=== PATIENT | female | born 1935 | race Caucasian/White ===

== ENCOUNTER 2018-02-28 13:50 | Observation (INO) | payer MEDICARE ==
[2018-02-28] MEDS ORDERED: SODIUM CHLORIDE 0.9% 500 ML IV STA (14:05)
[2018-02-28] MEDS ORDERED: hydrALAZINE HCL 20 MG/ML 1 ML VIAL IVP STA ×2 (14:05→16:00)
[2018-02-28] MEDS ORDERED: LORazepam 2 MG/ML INJ IV STA (14:09)
--- NOTE | 2018-02-28 14:09 | ED ---
General Adult HPI - General Chief complaint: Neuro Symptoms/Deficit Stated complaint: TIA Time Seen by Provider: 02/28/18 13:50 Source: patient, EMS, RN notes reviewed Mode of arrival: EMS Limitations: no limitations - History of Present Illness Initial comments: This is a 82-year-old female who states she has a high blood pressure history but does not take any meds she does not take medication. Patient comes in today stating that she had a 20 minute episode where she was having expressive aphasia. Patient states is completely resolved at this time. Patient denies any headache patient denies any blurred vision. Patient denies any double vision. Patient denies any numbness or weakness of any extremities. Patient states currently she feels back to her baseline. Patient denies any chest pain palpitations difficulty breathing shortness of breath per patient denies any recent fever chills or cough. Patient denies abdominal pain patient denies nausea vomiting diarrhea. Patient denies any dysuria hematuria urinary frequency. - Related Data Home Medications Medication Instructions Recorded Confirmed Optim-Eyes 1 tab PO BID 02/28/18 02/28/18 Allergies Allergy/AdvReac Type Severity Reaction Status Date / Time adhesive Allergy Rash/Hives Verified 02/28/18 14:44 Review of Systems ROS Statement: Those systems with pertinent positive or pertinent negative responses have been documented in the HPI. ROS Other: All systems not noted in ROS Statement are negative. Past Medical History Past Medical History: Eye Disorder, Hypertension, Osteoarthritis (OA) Additional Past Medical History / Comment(s): Macular Degeneration, History of Any Multi-Drug Resistant Organisms: None Reported Past Surgical History: Hysterectomy, Joint Replacement, Tonsillectomy Additional Past Surgical History / Comment(s): R hip replacement, R knee replacement, rt cataract Past Anesthesia/Blood Transfusion Reactions: No Reported Reaction Past Psychological History: No Psychological Hx Reported Smoking Status: Never smoker Past Alcohol Use History: Occasional Past Drug Use History: None Reported - Past Family History Mother Family Medical History: Cancer Additional Family Medical History / Comment(s): Breast General Exam - General Exam Comments Initial Comments: GENERAL: Patient is well-developed and well-nourished. Patient is nontoxic and well- hydrated and is in mild distress. ENT: Neck is soft and supple. No significant lymphadenopathy is noted. Oropharynx is clear. Moist mucous membranes. Neck has full range of motion without eliciting any pain. EYES: The sclera were anicteric and conjunctiva were pink and moist. Extraocular movements were intact and pupils were equal round and reactive to light. Eyelids were unremarkable. PULMONARY: Unlabored respirations. Good breath sounds bilaterally. No audible rales rhonchi or wheezing was noted. CARDIOVASCULAR: There is a regular rate and rhythm without any murmurs gallops or rubs. ABDOMEN: Soft and nontender with normal bowel sounds. No palpable organomegaly was noted. There is no palpable pulsatile mass. SKIN: Skin is clear with no lesions or rashes and otherwise unremarkable. NEUROLOGIC: Patient is alert and oriented x3. Cranial nerves II through XII are grossly intact. Motor and sensory are also intact. Normal speech, volume and content. Symmetrical smile. MUSCULOSKELETAL: Normal extremities with adequate strength and full range of motion. No lower extremity swelling or edema. No calf tenderness. LYMPHATICS: No significant lymphadenopathy is noted PSYCHIATRIC: Normal psychiatric evaluation. Normal interpersonal interactions appears functionally intact in deals appropriately with others. No signs of depression. No signs of anxiety. Limitations: no limitations Course Vital Signs 02/28/18 02/28/18 02/28/18 13:52 14:19 15:05 Temperature 98 F Pulse Rate 97 76 74 Respiratory 18 18 18 Rate Blood Pressure 208/98 175/97 196/97 O2 Sat by Pulse 97 100 100 Oximetry Medical Decision Making - Medical Decision Making EKG shows sinus tachycardia with occasional PACs and occasional PVC. A rate of 106 bpm ID interval 192 QRS is 88 QT interval 342 QTC is 454. Patient's EKG shows no ST segment elevation or depression or T wave abnormalities are noted CT of the brain shows no acute normalities. Chest x-ray shows a possible widened aorta. 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 I went back in to see the patient she was asymptomatic at this time. - Lab Data Result diagrams: 02/28/18 14:10 02/28/18 14:10 Lab Results 02/28/18 02/28/18 02/28/18 Range/Units 13:56 14:10 14:10 WBC 6.7 (3.8-10.6) k/uL RBC 4.36 (3.80-5.40) m/uL Hgb 13.1 (11.4-16.0) gm/dL Hct 38.0 (34.0-46.0) % MCV 87.2 (80.0-100.0) fL MCH 30.1 (25.0-35.0) pg MCHC 34.5 (31.0-37.0) g/dL RDW 13.7 (11.5-15.5) % Plt Count 206 (150-450) k/uL Neutrophils % 68 % Lymphocytes % 22 % Monocytes % 5 % Eosinophils % 5 % Basophils % 0 % Neutrophils # 4.6 (1.3-7.7) k/uL Lymphocytes # 1.5 (1.0-4.8) k/uL Monocytes # 0.3 (0-1.0) k/uL Eosinophils # 0.3 (0-0.7) k/uL Basophils # 0.0 (0-0.2) k/uL PT (9.0-12.0) sec INR (<1.2) APTT (22.0-30.0) sec Sodium (137-145) mmol/L Potassium (3.5-5.1) mmol/L Chloride (98-107) mmol/L Carbon Dioxide (22-30) mmol/L Anion Gap mmol/L BUN (7-17) mg/dL Creatinine (0.52-1.04) mg/dL Est GFR (CKD-EPI)AfAm (>60 ml/min/1.73 sqM) Est GFR (CKD-EPI)NonAf (>60 ml/min/1.73 sqM) Glucose (74-99) mg/dL POC Glucose (mg/dL) 158 H (75-99) mg/dL POC Glu Technical Solutions Director ID Kunal Albarran Calcium (8.4-10.2) mg/dL Total Bilirubin (0.2-1.3) mg/dL AST (14-36) U/L ALT (9-52) U/L Alkaline Phosphatase (38-126) U/L Total Creatine Kinase 96 (30-135) U/L CK-MB (CK-2) 1.7 (0.0-2.4) ng/mL CK-MB (CK-2) Rel Index 1.8 Troponin I <0.012 (0.000-0.034) ng/mL Total Protein (6.3-8.2) g/dL Albumin (3.5-5.0) g/dL 02/28/18 02/28/18 Range/Units 14:10 14:10 WBC (3.8-10.6) k/uL RBC (3.80-5.40) m/uL Hgb (11.4-16.0) gm/dL Hct (34.0-46.0) % MCV (80.0-100.0) fL MCH (25.0-35.0) pg MCHC (31.0-37.0) g/dL RDW (11.5-15.5) % Plt Count (150-450) k/uL Neutrophils % % Lymphocytes % % Monocytes % % Eosinophils % % Basophils % % Neutrophils # (1.3-7.7) k/uL Lymphocytes # (1.0-4.8) k/uL Monocytes # (0-1.0) k/uL Eosinophils # (0-0.7) k/uL Basophils # (0-0.2) k/uL PT 10.2 (9.0-12.0) sec INR 1.0 (<1.2) APTT 21.4 L (22.0-30.0) sec Sodium 143 (137-145) mmol/L Potassium 4.1 (3.5-5.1) mmol/L Chloride 105 (98-107) mmol/L Carbon Dioxide 25 (22-30) mmol/L Anion Gap 13 mmol/L BUN 22 H (7-17) mg/dL Creatinine 0.80 (0.52-1.04) mg/dL Est GFR (CKD-EPI)AfAm 81 (>60 ml/min/1.73 sqM) Est GFR (CKD-EPI)NonAf 70 (>60 ml/min/1.73 sqM) Glucose 133 H (74-99) mg/dL POC Glucose (mg/dL) (75-99) mg/dL POC Glu Technical Solutions Director ID Calcium 9.8 (8.4-10.2) mg/dL Total Bilirubin 0.9 (0.2-1.3) mg/dL AST 22 (14-36) U/L ALT 22 (9-52) U/L Alkaline Phosphatase 84 (38-126) U/L Total Creatine Kinase (30-135) U/L CK-MB (CK-2) (0.0-2.4) ng/mL CK-MB (CK-2) Rel Index Troponin I (0.000-0.034) ng/mL Total Protein 6.5 (6.3-8.2) g/dL Albumin 3.8 (3.5-5.0) g/dL Disposition Clinical Impression: Transient cerebral ischemia Disposition: ADMITTED IP TO THIS HOSP Referrals: None,Stated [Primary Care Provider] - 1-2 days Time of Disposition: 16:01
[2018-02-28 14:12] LABS: Glucose,Whole Blood 158 mg/dL (75-99)
[2018-02-28 14:21] LABS: Basophils % (A) 0 %; Eosinophils # (A) 0.3 k/uL (0-0.7); Eosinophils % (A) 5 %; HGB 13.1 gm/dL (11.4-16.0); Lymphocytes # (A) 1.5 k/uL (1.0-4.8); Lymphocytes % (A) 22 %; MCH 30.1 pg (25.0-35.0); MCHC 34.5 g/dL (31.0-37.0); MCV 87.2 fL (80.0-100.0); Mean Platelet Volume 7.5; Monocytes # (A) 0.3 k/uL (0-1.0); Monocytes % (A) 5 %; Neutrophils # (A) 4.6 k/uL (1.3-7.7); Neutrophils % (A) 68 %; Platelet Count 206 k/uL (150-450); RBC 4.36 m/uL (3.80-5.40); RDW 13.7 % (11.5-15.5); WBC 6.7 k/uL (3.8-10.6)
[2018-02-28 14:38] LABS: Prothrombin Time 10.2 sec (9.0-12.0)
[2018-02-28 14:41] LABS: Albumin 3.8 g/dL (3.5-5.0); Calcium 9.8 mg/dL (8.4-10.2); Potassium 4.1 mmol/L (3.5-5.1); Total Bilirubin 0.9 mg/dL (0.2-1.3); Total Protein 6.5 g/dL (6.3-8.2)
--- NOTE | 2018-02-28 14:42 | CT ---
EXAMINATION TYPE: CT brain wo con for TPA DATE OF EXAM: 02/28/2018 HISTORY: Patient complains of episode of aphasia. CT DLP: 1064 mGycm. Automated Exposure Control for Dose Reduction was Utilized. TECHNIQUE: CT scan of the head is performed without contrast. COMPARISON: CT brain February 09, 2016 FINDINGS: There is no acute intracranial hemorrhage or midline shift identified. There is diffuse v entricular and sulcal prominence consistent with diffuse age-related cerebral atrophy. There is low- attenuation in the periventricular white matter consistent with chronic small vessel ischemic change. Hyperostosis frontalis is redemonstrated. Dependent density bilateral sphenoid sinuses is more promi nent from prior study, suspect air-fluid levels on background of eccentric mucosal thickening. Visual ized paranasal sinuses otherwise are clear. Neither lens is well-visualized in the globes. IMPRESSION: No acute intracranial hemorrhage or midline shift. There is mild diffuse age-related ce rebral atrophy and mild to moderate chronic small vessel ischemic change redemonstrated. There is no significant change from prior CT. If clinical concern for acute stroke persists further investigation with MRI study may be warranted.
[2018-02-28 14:44] LABS: Partial Thromboplastin Time 21.4 sec (22.0-30.0)
--- NOTE | 2018-02-28 14:44 | XR ---
EXAMINATION TYPE: XR chest 2V DATE OF EXAM: 02/28/2018 COMPARISON: NONE HISTORY: Altered mental status. TECHNIQUE: Frontal and lateral views of the chest are obtained. FINDINGS: There is chronic parenchymal change without suspicious focal air space opacity, pleural ef fusion, or pneumothorax seen. The cardiac silhouette size is mildly enlarged with atherosclerotic ao rta. There is suspicious rounded soft tissue superior to aortic knob with mass effect on trachea. The osseous structures are demineralized. Mild to moderate multilevel spurring in the spine with disc sp patrick narrowing is seen. IMPRESSION: Cardiomegaly and chronic parenchymal changes without acute pulmonary process. Abnormalit y left periaortic level could reflect focal aneurysm, mediastinal mass or neoplasm however needs to B E excluded. Further investigation with CT exam is advised.
[2018-02-28 14:51] LABS: Creatine Kinase 96 U/L (30-135)
[2018-02-28 15:02] LABS: Creatine Kinase MB 1.7 ng/mL (0.0-2.4); Troponin I <0.012 ng/mL (0.000-0.034)
[2018-02-28] MEDS ORDERED: RX INFO: IV CONTRAST WAS GIVEN 1 EACH MISC MISCELLANE PRN (15:16)
--- NOTE | 2018-02-28 15:53 | CT ---
EXAMINATION TYPE: CT chest w con DATE OF EXAM: 02/28/2018 COMPARISON: Same day chest x-ray HISTORY: Pain, abnormal chest x-ray CT DLP: 211.8 mGycm Automated exposure control for dose reduction was used. CONTRAST: CT scan of the chest is performed with IV Contrast, patient injected with 100 mL of Isovue 300. FINDINGS: LUNGS: There is chronic parenchymal change with bibasilar scarring and/or atelectasis throughout the lower lobes. There is mild to moderate biapical pleural/parenchymal scarring. No suspicious parenchym al nodule or mass is present. No pleural effusion or pneumothorax is seen. Tracheobronchial tree is p atent. MEDIASTINUM: There are no greater than 1 cm hilar or mediastinal lymph nodes. No pericardial effus ion is seen. Cardiomegaly is present. There is enlarged main pulmonary artery. Corresponding to x-ra y abnormality past three-vessel takeoff there is eccentric thrombosed aneurysm of the proximal descen ding thoracic aorta measuring approximately 4.6 x 3.7 cm axial image 11. There is moderate mixed plaq ue in descending thoracic aorta. OTHER: There is nonobstructing 4 mm calculus mid pole level right kidney coronal image 49. There are few simple appearing cysts scattered throughout the visualized right kidney. There is nonobstructed 6 mm calculus mid pole level left kidney axial image 68. Osseous structures are demineralized. Slight S-shaped scoliosis is seen. There is moderate multilevel spurring present. IMPRESSION: 1. Corresponding to chest x-ray abnormality there is eccentric thrombosed aneurysm of the proximal de scending thoracic aorta. Nonemergent cardiovascular referral or follow-up advised. 2. Chronic parenchymal changes without suspicious acute pulmonary process.
[2018-02-28] MEDS ORDERED: ASPIRIN 325 MG TAB PO STA (16:03)
[2018-02-28] MEDS ORDERED: CLOBETASOL PROP 0.05% CR 15GM TOPICAL PRN (18:53)
[2018-03-01] MEDS: LABETALOL 200 MG TAB PO SCH ×3 (00:25→21:21)
[2018-03-01] MEDS: HEPARIN SODIUM,PORCINE 5,000 UNIT/ML 1 ML VIAL SQ SCH ×4 (00:29→23:57)
--- NOTE | 2018-03-01 01:17 | P.HPIM ---
History of Present Illness H&P Date: 02/28/18 Chief Complaint: Expressive aphagia Patient is a 82-year-old female with known history of hypertension, osteoarthritis and macular degeneration came to ER with complaints of difficulty finding words which last for about 20 minutes. Patient was having expressive aphasia which has completely resolved at this time. Otherwise patient denied any recent illnesses or sick contacts. Denied any focal weakness or blurry vision. No numbness or tingling. Currently she is back to her baseline. Otherwise denied any chest pain or shortness of breath. No history of irregular heartbeat or palpitations. No cough or sputum production. No nausea vomiting or abdominal pain. No dysuria or hematuria . CT head showed no acute process. Mild diffuse age-related cerebral atrophy and mild to moderate small was a ischemic changes. No significant change from her CT Chest x-ray showed cardiomegaly and chronic parenchymal changes without acute process. Abnormal left periaortic level could reflect focal aneurysm CT chest showed eccentric thrombosis aneurysm of the proximal thoracic descending aorta EKG showed sinus tachycardia and PACs Review of Systems Constitutional: Patient denies any fever or chills . No generalized weakness or weight loss. Abdomen: Patient denied nausea vomiting and diarrhea and abdominal pain. Cardiovascular: Patient denies any chest pain or short of breath no palpitations. Respiratory: patient denied any cough is from production. No shortness of breath Neurologic: Patient denied any numbness or tingling headache. Musculoskeletal: Patient denies any complaints of joint swelling or deformity. Skin: Negative Psychiatric: Negative Endocrine: No heat or cold intolerance. No recent weight gain. Genitourinary: No dysuria or hematuria. All other 14 point ROS negative except the above Past Medical History Past Medical History: Eye Disorder, Hypertension, Osteoarthritis (OA) Additional Past Medical History / Comment(s): Macular Degeneration, past bladder infection, "vaginal itching uses a cream for it" History of Any Multi-Drug Resistant Organisms: None Reported Past Surgical History: Hysterectomy, Joint Replacement, Tonsillectomy Additional Past Surgical History / Comment(s): R hip replacement, R knee replacement, monika cataract, vein stripping Past Anesthesia/Blood Transfusion Reactions: No Reported Reaction Smoking Status: Never smoker - Past Family History Mother Family Medical History: Cancer Additional Family Medical History / Comment(s): Breast Medications and Allergies Home Medications Medication Instructions Recorded Confirmed Type Clobetasol Propionate [Temovate 1 applic TOPICAL DIRECTED PRN 02/28/18 History 0.05% Cream] Optim-Eyes 1 tab PO BID 02/28/18 02/28/18 History Allergies Allergy/AdvReac Type Severity Reaction Status Date / Time adhesive Allergy Rash/Hives Verified 02/28/18 14:44 Physical Exam Vitals: Vital Signs Temp Pulse Resp BP Pulse Ox 02/28/18 16:45 97.5 F L 100 18 176/77 100 02/28/18 16:06 81 18 194/84 96 02/28/18 15:05 74 18 196/97 100 02/28/18 14:19 76 18 175/97 100 02/28/18 13:52 98 F 97 18 208/98 97 Intake and Output 02/28/18 02/28/18 02/28/18 06:59 14:59 22:59 Other: Weight 63.503 kg PHYSICAL EXAMINATION: Patient is lying in the bed comfortably, no acute distress, awake alert and oriented.. HEENT: Normocephalic. Neck is supple. Pupils reactive. Nostrils clear. Oral cavity is moist. Ears reveal no drainage. Neck reveals no JVD, carotid bruits, or thyromegaly. CHEST EXAMINATION: Trachea is central. Symmetrical expansion. Lung arzate clear to auscultation and percussion. CARDIAC: Normal S1, S2 with no gallops. No murmurs ABDOMEN: Soft. Bowel sounds normal. No organomegaly. No abdominal bruits. Extremities: reveal no edema. No clubbing or cyanosis Neurologically awake, alert, oriented x3 with well-coordinated movements. No focal deficits noted Skin: No rash or skin lesions. Psychiatric: Cooperative. Nonsuicidal Musculoskeletal: No joint swelling or deformity. Normal range of motion. Results CBC & Chem 7: 02/28/18 14:10 02/28/18 14:10 Labs: Abnormal Lab Results - Last 24 Hours (Table) 02/28/18 02/28/18 02/28/18 Range/Units 13:56 14:10 14:10 APTT 21.4 L (22.0-30.0) sec BUN 22 H (7-17) mg/dL Glucose 133 H (74-99) mg/dL POC Glucose (mg/dL) 158 H (75-99) mg/dL Thrombosis Risk Factor Assmnt - DVT/VTE Prophylaxis DVT/VTE Prophylaxis: Pharmacologic Prophylaxis ordered Assessment and Plan Assessment: Expressive aphasia likely due to TIA. 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 Started on labetalol 200 mg twice a day and Norvasc will be added. Continue to monitor blood pressure and titrate medications as needed. Neurology was consulted. Further recommendations based on the clinical course. Continue with home medications. Will check lipid panel.. Time with Patient: Greater than 30
[2018-03-01 05:16] LABS: Cholesterol 249 mg/dL (<200); HDL Cholesterol 57 mg/dL (40-60); LDL Cholesterol,Calculated 169 mg/dL (0-99); Triglycerides 117 mg/dL (<150)
[2018-03-01] MEDS: VIT A,C & E-LUTEIN-MINERALS 1 EACH TAB PO SCH (09:32)
[2018-03-01] MEDS: ASPIRIN 325 MG TAB PO SCH (09:32)
[2018-03-01] MEDS: amLODIPine 5 MG TAB PO SCH (12:17)
--- NOTE | 2018-03-01 16:09 | US ---
EXAMINATION TYPE: US carotid duplex BILAT DATE OF EXAM: 03/01/2018 COMPARISON: NONE CLINICAL HISTORY: 82-year-old female TIA. TECHNIQUE: Carotid duplex ultrasound examination. In direct upper criteria was utilized. FINDINGS: EXAM MEASUREMENTS: RIGHT: Peak Systolic Velocity (PSV) cm/sec ----- Right CCA: 104.3 (Proximal 160 cm/s) ----- Right ICA: 76.8 ----- Right ECA: 112.9 ICA/CCA ratio: 0.7 RIGHT: End Diastole cm/sec ----- Right CCA: 18.4 ----- Right ICA: 23.0 ----- Right ECA: 11.1 LEFT: Peak Systolic Velocity (PSV) cm/sec ----- Left CCA: 67.3 ----- Left ICA: 84.5 ----- Left ECA: 121.0 ICA/CCA ratio: 1.2 LEFT: End Diastole cm/sec ----- Left CCA: 13.1 ----- Left ICA: 24.1 ----- Left ECA: 4.7 VERTEBRALS (direction of flow): Right Vertebral: Antegrade Left Vertebral: Antegrade Rhythm: Normal Mild amount of plaque visualized at bilateral bulbs. Elevated velocity at the right proximal CCA. Ves jonathon is deep and slightly tortuous IMPRESSION: 1. No hemodynamically significant stenosis appreciated in either internal carotid artery. 2. Elevated velocities in the proximal right common carotid artery could represent either a moderate stenosis near its origin versus increased velocities from vessel tortuosity. Criteria for Assigning % of Stenosis / Diameter reduction (Estimation based on the indirect measurements of the internal carotid artery velocities (ICA PSV). 1. Normal (no stenosis)=ICA PSV < 125 cm/s: ratio < 2.0: ICA EDV<40 cm/s. 2. Less than 50% stenosis=ICA PSV < 125 cm/s: ratio < 2.0: ICA EDV<40 cm/s. 3. 50 to 69% stenosis=ICA PSV of 125 to 230 cm/s: ration 2.0 ? 4.0: ICA EDV 40-100 cm/s. 4. Greater than 70% stenosis to near occlusion= ICA PSV > 230 cm/s: ratio > 4.0: ICA EDV > 100 cm/s. 5. Near occlusion= ICA PSV velocities may be low or undetectable: variable ratio and ICA EDV. 6. Total occlusion=unable to detect flow.
--- NOTE | 2018-03-01 19:16 | P.CNNES ---
History of Present Illness Consult date: 03/01/18 History of Present Illness: The patient is an 82-year-old right-handed white female who lives at [facility] who states that she was going down to lunch yesterday and she found that she could not bring out the words properly. She wanted to say cottage cheese but the word could not come out. Back to her room and called her friend. Her friend and notified the staff at [facility] and EMS was called. She was brought to the hospital. The entire episode lasted for 15 minutes. There was no associated neurologic symptoms such as focal weakness numbness visual changes or headache. She states she had only the speech word finding difficulty. There is no past history of such events. Patient feels fine today. In the emergency room she had a CT brain and there was no acute hemorrhage or midline shift. There is age-related changes. Review of Systems Constitutional: Denies chills, Denies fever Eyes: denies blurred vision, denies pain Cardiovascular: Denies chest pain, Denies shortness of breath Respiratory: Denies cough Musculoskeletal: Denies myalgias Integumentary: Denies pruritus, Denies rash Neurological: Denies numbness, Denies weakness Psychiatric: Denies anxiety, Denies depression Past Medical History Past Medical History: Eye Disorder, Hypertension, Osteoarthritis (OA) Additional Past Medical History / Comment(s): Macular Degeneration, past bladder infection, "vaginal itching uses a cream for it" History of Any Multi-Drug Resistant Organisms: None Reported Past Surgical History: Hysterectomy, Joint Replacement, Tonsillectomy Additional Past Surgical History / Comment(s): R hip replacement, R knee replacement, monika cataract, vein stripping Past Anesthesia/Blood Transfusion Reactions: No Reported Reaction Smoking Status: Never smoker - Past Family History Mother Family Medical History: Cancer Additional Family Medical History / Comment(s): Breast Medications and Allergies Home Medications Medication Instructions Recorded Confirmed Type Clobetasol Propionate [Temovate 1 applic TOPICAL DIRECTED PRN 02/28/18 History 0.05% Cream] Optim-Eyes 1 tab PO BID 02/28/18 02/28/18 History Allergies Allergy/AdvReac Type Severity Reaction Status Date / Time adhesive Allergy Rash/Hives Verified 02/28/18 14:44 Physical Examination - Vital Signs Vital Signs: Vital Signs Temp Pulse Pulse Resp BP BP Pulse Ox 03/01/18 16:00 97.5 F L 64 18 121/67 96 03/01/18 12:15 97.5 F L 71 16 162/56 95 03/01/18 08:29 97.6 F 73 16 104/70 99 03/01/18 04:00 97.7 F 71 16 148/67 99 03/01/18 00:00 97.2 F L 71 16 164/88 97 02/28/18 21:00 78 18 142/72 98 Intake and Output 03/01/18 03/01/18 03/01/18 06:59 14:59 22:59 Intake Total 240 420 Balance 240 420 Intake: Oral 240 420 Other: Voiding Method Toilet Toilet Toilet Bedside Commode Bedside Commode Bedside Commode # Voids 1 1 - Constitutional General appearance: average body habitus - EENT EENT: PERRL, hearing diminished - Respiratory Respiratory: lungs clear - Cardiovascular Cardiovascular: regular rate, normal S1 - Neurologic Neurologic examination: Mental status: She was awake alert and oriented 3. Her speech was fluent. She was able to name and repeat. There was no a aphasia or dysarthria. Next Cranial nerve examination: Cranial nerves II through XII are grossly intact except for reduced vision in both eyes next and reduced hearing. Next Motor examination 5 out of 5 throughout Sensory examination: Intact to light touch Coronation: Finger to nose intact Gait: She was able to walk without ataxia - Psychiatric Psychiatric: mood/affect appropriate Results - Laboratory Findings CBC and BMP: 02/28/18 14:10 02/28/18 14:10 Abnormal Lab Findings: Abnormal Labs 02/28/18 02/28/18 02/28/18 13:56 14:10 14:10 APTT 21.4 L BUN 22 H Glucose 133 H POC Glucose (mg/dL) 158 H Cholesterol LDL Cholesterol, Calc 02/28/18 14:10 APTT BUN Glucose POC Glucose (mg/dL) Cholesterol 249 H LDL Cholesterol, Calc 169 H Assessment and Plan (1) Transient cerebral ischemia Current Visit: Yes Status: Acute SNOMED Code(s): 467232067 Plan: The patient is an 82-year-old woman who had a transient episode of word finding expressive aphasia. The patient has likely had a TIA. Recommend carotid ultrasound and echocardiogram. Recommend aspirin therapy. Her primary risk factor for stroke is hypertension.
[2018-03-01] MEDS: ATORVASTATIN 40 MG TAB PO SCH (21:28)
--- NOTE | 2018-03-01 22:07 | P.PN ---
Subjective Progress Note Date: 03/01/18 Principal diagnosis: TIA Patient is a 82-year-old female with known history of hypertension, osteoarthritis and macular degeneration came to ER with complaints of difficulty finding words which last for about 20 minutes. Patient was having expressive aphasia which has completely resolved at this time. Otherwise patient denied any recent illnesses or sick contacts. Denied any focal weakness or blurry vision. No numbness or tingling. Currently she is back to her baseline. Otherwise denied any chest pain or shortness of breath. No history of irregular heartbeat or palpitations. No cough or sputum production. No nausea vomiting or abdominal pain. No dysuria or hematuria . CT head showed no acute process. Mild diffuse age-related cerebral atrophy and mild to moderate small was a ischemic changes. No significant change from her CT Chest x-ray showed cardiomegaly and chronic parenchymal changes without acute process. Abnormal left periaortic level could reflect focal aneurysm CT chest showed eccentric thrombosis aneurysm of the proximal thoracic descending aorta EKG showed sinus tachycardia and PACs On 03/01/2018 Patient denied any complaints of difficulty in finding words today. Symptoms haven't completely resolved. Carotid duplex showed no significant stenosis. Neurology has seen the patient. CT surgery was consulted for thrombosis of the proximal thoracic descending aorta. No complaints of chest pain or shortness of breath. No fever no chills. No other acute overnight issues. All other review of systems negative except the above. Current medications reviewed. Objective - Vital Signs Vital signs: Vital Signs Temp 97.5 F L 03/01/18 16:00 Pulse 64 03/01/18 16:00 Resp 18 03/01/18 16:00 BP 121/67 03/01/18 16:00 Pulse Ox 96 03/01/18 16:00 Intake & Output 02/28/18 03/01/18 03/01/18 18:59 06:59 18:59 Intake Total 240 Balance 240 Weight 63.503 kg Intake: Oral 240 Other: Voiding Method Toilet Toilet Bedside Commode Bedside Commode # Voids 1 1 - Exam PHYSICAL EXAMINATION: Patient is lying in the bed comfortably, no acute distress, awake alert and oriented.. HEENT: Normocephalic. Neck is supple. Pupils reactive. Nostrils clear. Oral cavity is moist. Ears reveal no drainage. Neck reveals no JVD, carotid bruits, or thyromegaly. CHEST EXAMINATION: Trachea is central. Symmetrical expansion. Lung arzate clear to auscultation and percussion. CARDIAC: Normal S1, S2 with no gallops. No murmurs ABDOMEN: Soft. Bowel sounds normal. No organomegaly. No abdominal bruits. Extremities: reveal no edema. No clubbing or cyanosis Neurologically awake, alert, oriented x3 with well-coordinated movements. No focal deficits noted Skin: No rash or skin lesions. Psychiatric: Coperative. Nonsuicidal Musculoskeletal: No joint swelling or deformity. Normal range of motion. - Labs CBC & Chem 7: 02/28/18 14:10 02/28/18 14:10 Labs: Abnormal Lab Results - Last 24 Hours (Table) 02/28/18 Range/Units 14:10 Cholesterol 249 H (<200) mg/dL LDL Cholesterol, Calc 169 H (0-99) mg/dL Assessment and Plan Assessment: Expressive aphasia likely due to TIA. Resolved at this time Hypertensive urgency on admission. 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 Started on labetalol 200 mg twice a day and Norvasc was added. Blood pressure is better controlled now. Continue to monitor blood pressure and titrate medications as needed. Neurology was consulted. Further recommendations based on the clinical course. Continue with home medications. Will check lipid panel.. Time with Patient: Greater than 30
[2018-03-02 06:14] LABS: Basophils % (A) 0 %; Eosinophils # (A) 0.3 k/uL (0-0.7); Eosinophils % (A) 5 %; HCT 36.2 % (34.0-46.0); Lymphocytes # (A) 2.2 k/uL (1.0-4.8); Lymphocytes % (A) 44 %; MCH 29.7 pg (25.0-35.0); MCHC 33.3 g/dL (31.0-37.0); MCV 89.2 fL (80.0-100.0); Monocytes # (A) 0.3 k/uL (0-1.0); Monocytes % (A) 5 %; Neutrophils # (A) 2.3 k/uL (1.3-7.7); Neutrophils % (A) 45 %; Platelet Count 173 k/uL (150-450); RBC 4.06 m/uL (3.80-5.40); RDW 13.8 % (11.5-15.5); WBC 5.1 k/uL (3.8-10.6)
[2018-03-02 06:38] LABS: Anion Gap 9 mmol/L; Blood Urea Nitrogen 16 mg/dL (7-17); Calcium 9.2 mg/dL (8.4-10.2); Carbon Dioxide 25 mmol/L (22-30); Chloride 107 mmol/L (98-107); Glucose 92 mg/dL (74-99); Sodium 141 mmol/L (137-145)
[2018-03-02] MEDS: ASPIRIN 325 MG TAB PO SCH (09:09)
[2018-03-02] MEDS: HEPARIN SODIUM,PORCINE 5,000 UNIT/ML 1 ML VIAL SQ SCH ×3 (09:10→23:06)
[2018-03-02] MEDS: amLODIPine 5 MG TAB PO SCH (09:10)
[2018-03-02] MEDS: LABETALOL 100 MG TAB PO SCH ×2 (09:10→20:51)
--- NOTE | 2018-03-02 10:36 | ECHOF ---
Referral Reason:TIA MEASUREMENTS -------- HEIGHT: 172.7 cm WEIGHT: 57.6 kg BP: 130/50 IVSd: 1.1 cm (0.6 - 1.1) LVIDd: 4.6 cm (3.9 - 5.3) LVPWd: 1.0 cm (0.6 - 1.1) IVSs: 1.7 cm LVIDs: 2.7 cm LVPWs: 1.8 cm LA Diam: 4.3 cm (2.7 - 3.8) LAESV Index (A-L): 42.76 ml/m Ao Diam: 3.3 cm (2.0 - 3.7) AV Cusp: 1.5 cm (1.5 - 2.6) LA Diam: 3.7 cm (2.7 - 3.8) MV EXCURSION: 17.354 mm (> 18.000) MV EF SLOPE: 40 mm/s (70 - 150) EPSS: 0.3 cm MV E Kuldeep: 1.11 m/s MV DecT: 407 ms MV A Kuldeep: 1.33 m/s MV E/A Ratio: 0.83 MV DecT: 407 ms RAP: 5.00 mmHg RVSP: 29.90 mmHg FINDINGS -------- Sinus rhythm. This was a technically good study. The left ventricular size is normal. There is borderline concentric left ventricular hypertrophy. Overall left ventricular systolic function is low-normal with, an EF between 50 - 55 %. The right ventricle is normal in size. The left atrium is mildly dilated. LA is severely dilated >40 ml/m2 The right atrial size is normal. There is mild aortic valve sclerosis. There is no evidence of aortic regurgitation. Moderate mitral annular calcification present. Mild mitral regurgitation is present. Mild tricuspid regurgitation present. There is no evidence of pulmonary hypertension. The right v entricular systolic pressure, as measured by Doppler, is 29.90mmHg. There is no pulmonic regurgitation present. The aortic root size is normal. There is no pericardial effusion. CONCLUSIONS -------- 1. The left ventricular size is normal. 2. There is borderline concentric left ventricular hypertrophy. 3. Overall left ventricular systolic function is low-normal with, an EF between 50 - 55 %. 4. The left atrium is mildly dilated. 5. LA is severely dilated >40 ml/m2 6. There is mild aortic valve sclerosis. 7. Moderate mitral annular calcification present. 8. Mild mitral regurgitation is present. 9. Mild tricuspid regurgitation present. 10. There is no evidence of pulmonary hypertension. 11. The right ventricular systolic pressure, as measured by Doppler, is 29.90mmHg. 12. There is no pulmonic regurgitation present. 13. The aortic root size is normal. 14. There is no pericardial effusion. UPPER SHAPER: Viktoria Inman RDCS
--- NOTE | 2018-03-02 11:27 | P.GSCN ---
<Naeem Roy - Last Filed: 03/02/18 11:09> History of Present Illness Consult date: 03/02/18 Reason for Consult: Descending aortic aneurysm Requesting physician: Luke Perez History of present illness: This is a 82-year-old female with a medical history significant for hypertension , osteoarthritis, and macular degeneration. She presented to the emergency department here at [facility] with complaints of difficulty of finding her words which lasted for approximately 20-30 minutes. She lives at a local assisted care facility and reports that she was having a conversation with her friend over the phone and was having trouble completing sentences. She denies any recent trauma, fever, nausea, vomiting, loss of bowel or bladder function, pain, or shortness of breath. She does report having some blurred vision which she has had for several years. A chest x-ray was completed in the emergency department which did demonstrate an abnormality to her left periaortic level which could reflect an aneurysm, mediastinal mass or neoplasm. Subsequently a follow-up computed tomography scan of her chest was completed which showed an eccentric thrombosed aneurysm of the proximal descending thoracic aorta measuring 4.6 x 3.7 cm in axial image 11. Due to the incidental finding of this descending aortic aneurysm a consult was placed for cardiothoracic surgery for further evaluation and treatment recommendations. Review of Systems A 14 point review of systems was completed and was negative except as mentioned in the HPI. Past Medical History Past Medical History: Eye Disorder (Cataracts, blurred vision.), Hypertension, Osteoarthritis (OA) Additional Past Medical History / Comment(s): Macular Degeneration, past bladder infection, "vaginal itching uses a cream for it" History of Any Multi-Drug Resistant Organisms: None Reported Past Surgical History: Hysterectomy, Joint Replacement, Tonsillectomy Additional Past Surgical History / Comment(s): R hip replacement, R knee replacement, monika cataract, vein stripping Past Anesthesia/Blood Transfusion Reactions: No Reported Reaction Past Psychological History: No Psychological Hx Reported Smoking Status: Never smoker Past Alcohol Use History: Occasional Past Drug Use History: None Reported - Past Family History Mother Family Medical History: Cancer, Hypertension, Myocardial Infarction (NH) Additional Family Medical History / Comment(s): Breast, history of aortic aneurysm. Father Family Medical History: Diabetes Mellitus Medications and Allergies Home Medications Medication Instructions Recorded Confirmed Type Clobetasol Propionate [Temovate 1 applic TOPICAL DIRECTED PRN 02/28/18 History 0.05% Cream] Optim-Eyes 1 tab PO BID 02/28/18 02/28/18 History Aspirin 81 mg PO DAILY #30 chewable 03/02/18 Rx Atorvastatin [Lipitor] 40 mg PO HS #30 tab 03/02/18 Rx Carvedilol [Coreg] 3.125 mg PO BID #60 tablet 03/02/18 Rx amLODIPine [Norvasc] 5 mg PO DAILY #30 tab 03/02/18 Rx Levofloxacin [Levaquin] 500 mg PO DAILY 3 Days #3 tab 03/03/18 Rx Allergies Allergy/AdvReac Type Severity Reaction Status Date / Time adhesive Allergy Rash/Hives Verified 02/28/18 14:44 Surgical - Exam Vital Signs Temp Pulse Resp BP Pulse Ox 98 F 97 18 208/98 97 02/28/18 13:52 02/28/18 13:52 02/28/18 13:52 02/28/18 13:52 02/28/18 13:52 - General well developed, well nourished, no distress, no pain - Eyes PERRL, normal ocular movement - ENT normal pinna, normal nares, normal mucosa, no congestion, decreased hearing - Neck No lymphadenopathy, no thyroidomegaly, neck is supple. no masses, no bruits, trachea midline, no venous distension - Respiratory Lung sounds essentially clear throughout, diminished bilateral bases. Respirations are symmetrical and nonlabored. - Cardiovascular Regular rhythm and rate. S1 and S2 present, negative for S3, gallop or murmurs. No edema present. Knee-high ALETHEA hose in place to bilateral lower extremities. - Abdomen Abdomen is soft, nontender and nondistended. Active bowel sounds to all 4 abdominal quadrants. Tolerating oral intake. Passing flatus. No guarding or rigidity. No organomegaly. - Genitourinary Deferred - Rectum Deferred - Integumentary no rash, no growths, no abnormal pigmentation - Neurologic normal coordination, normal sensation - Musculoskeletal normal gait, normal posture - Psychiatric oriented to time, oriented to person, oriented to place, speech is normal, memory intact Results - Labs 03/02/18 06:01 03/02/18 06:01 Diabetes panel 03/02/18 Range/Units 06:01 Sodium 141 (137-145) mmol/L Potassium 4.0 (3.5-5.1) mmol/L Chloride 107 (98-107) mmol/L Carbon Dioxide 25 (22-30) mmol/L BUN 16 (7-17) mg/dL Creatinine 0.70 (0.52-1.04) mg/dL Glucose 92 (74-99) mg/dL Calcium 9.2 (8.4-10.2) mg/dL Calcium panel 03/02/18 Range/Units 06:01 Calcium 9.2 (8.4-10.2) mg/dL Pituitary panel 03/02/18 Range/Units 06:01 Sodium 141 (137-145) mmol/L Potassium 4.0 (3.5-5.1) mmol/L Chloride 107 (98-107) mmol/L Carbon Dioxide 25 (22-30) mmol/L BUN 16 (7-17) mg/dL Creatinine 0.70 (0.52-1.04) mg/dL Glucose 92 (74-99) mg/dL Calcium 9.2 (8.4-10.2) mg/dL Adrenal panel 03/02/18 Range/Units 06:01 Sodium 141 (137-145) mmol/L Potassium 4.0 (3.5-5.1) mmol/L Chloride 107 (98-107) mmol/L Carbon Dioxide 25 (22-30) mmol/L BUN 16 (7-17) mg/dL Creatinine 0.70 (0.52-1.04) mg/dL Glucose 92 (74-99) mg/dL Calcium 9.2 (8.4-10.2) mg/dL - Imaging Chest x-ray: report reviewed, image reviewed CT scan - chest: report reviewed, image reviewed Assessment and Plan (1) Descending thoracic aortic aneurysm Status: Acute Code(s): I71.2 - THORACIC AORTIC ANEURYSM, WITHOUT RUPTURE SNOMED Code(s): 4266925713878 (2) Transient cerebral ischemia Status: Acute Code(s): G45.9 - TRANSIENT CEREBRAL ISCHEMIC ATTACK, UNSPECIFIED SNOMED Code(s): 518724160 (3) Cataract Status: Acute Code(s): H26.9 - UNSPECIFIED CATARACT SNOMED Code(s): 837185483 (4) Hypertension Status: Acute Code(s): I10 - ESSENTIAL (PRIMARY) HYPERTENSION SNOMED Code(s) : 88691449 (5) Osteoarthritis Status: Acute Code(s): M19.90 - UNSPECIFIED OSTEOARTHRITIS, UNSPECIFIED SITE SNOMED Code(s): 926299515 Plan: The patient was seen and examined. Her chart and diagnostics were reviewed. Her case was discussed with Dr. Good. Dr. Good reviewed the CT scan of her chest results with the patient. Recommend continue her beta cristian, calcium channel cristian for blood pressure control. She will need to follow-up with a computed tomography scan of her chest in 3 months to follow her descending aortic aneurysm. No surgical treatment is recommended at this time. Thank you Dr. Perez for this consult and we will follow the patient on a as needed basis. Time with Patient: Greater than 30 <Ar Good - Last Filed: 03/05/18 10:59> Surgical - Exam Vital Signs Temp Pulse Resp BP Pulse Ox 98 F 97 18 208/98 97 02/28/18 13:52 02/28/18 13:52 02/28/18 13:52 02/28/18 13:52 02/28/18 13:52 Results - Labs 03/02/18 06:01 03/02/18 06:01 Microbiology - Last 24 Hours (Table) 03/02/18 16:00 Urine Culture - Final Urine,Clean Catch Escherichia coli Assessment and Plan Plan: The patient was seen and examined. The history and physical findings were verified. I agree with the above assessment and plan. The patient is an 82- year-old female admitted with TIA symptomatology, who had an incidental finding of a descending thoracic aortic aneurysm on computed tomography scan. Computed tomography scan reveals what may have been a limited aortic dissection which is now thrombosed just distal to the takeoff of the left subclavian artery. There is no evidence of pleural effusion or ascending aortic dissection. At this point I would continue with medical management including blood pressure control with a beta cristian. I would also recommend a follow-up computed tomography scan in 3 months time. There is no plan for surgical intervention at this time.
[2018-03-02 11:33] VITALS: RESP 16
[2018-03-02] MEDS: VIT A,C & E-LUTEIN-MINERALS 1 EACH TAB PO SCH (11:34)
[2018-03-02 16:39] LABS: Appearance,Urine Cloudy (Clear); Bacteria,Urine Moderate /hpf; Bilirubin,Urine Negative (Negative); Blood,Urine Negative (Negative); Color,Urine Light Yellow; Glucose,Urine (UA) Negative (Negative); Ketones,Urine Negative (Negative); Leukocyte Esterase,Urine Large (Negative); Nitrite,Urine Negative (Negative); PH, Urine 6.5 (5.0-8.0); Protein,Urine Negative (Negative); RBC,Urine 2 /hpf (0-5); Specific Gravity,Urine 1.005 (1.001-1.035); Squamous Epithelial Cell,Urine <1 /hpf (0-4); Urobilinogen,Urine <2.0 mg/dL (<2.0); WBC,Urine 87 /hpf (0-5)
[2018-03-02] MEDS ORDERED: cefTRIAXone IN SWFI 1,000 MG/10 ML SYRINGE IVP SCH (18:00)
--- NOTE | 2018-03-02 20:36 | P.PN ---
Subjective Progress Note Date: 03/02/18 The patient is an 82-year-old woman who was admitted to the hospital with episode of word finding difficulty. She has been asymptomatic since admission. She has been started on aspirin daily. She has had a carotid ultrasound which has not shown any stenosis. She has had an echocardiogram which was unremarkable. She had a computed tomography scan of the brain which showed age- related changes and atrophy. The patient is feeling well. He denies any speech disturbance or recurrence of speech defect. The patient likely has had a TIA. Her primary risk factor for stroke is hypertension however she states she does not like taking blood pressure pills and stopped taking them about 6 months ago. Objective - Vital Signs Vital signs: Vital Signs Temp 97.0 F L 03/02/18 16:00 Pulse 69 03/02/18 16:00 Resp 16 03/02/18 16:00 BP 138/72 03/02/18 16:00 Pulse Ox 97 03/02/18 16:00 Intake & Output 03/02/18 03/02/18 03/03/18 06:59 18:59 06:59 Intake Total 620 1640 Balance 620 1640 Weight 58 kg Intake: Oral 620 1640 Other: Voiding Method Toilet Toilet Bedside Commode Bedside Commode # Voids 1 - Constitutional General appearance: Present: average body habitus, cooperative - EENT Eyes: Present: PERRLA - Respiratory Respiratory: bilateral: CTA - Cardiovascular Rhythm: regular - Neurologic Neurologic Comment(s): Neurologic examination: Mental status: She was awake alert and oriented 3 her speech was fluent there is no a aphasia or dysarthria. Cranial nerve examination pupils were equal and reactive there was no facial asymmetry she did have visual acuity loss next Motor examination no focal weakness detected - Musculoskeletal Musculoskeletal: Present: strength equal bilaterally - Labs CBC & Chem 7: 03/02/18 06:01 03/02/18 06:01 Labs: Abnormal Lab Results - Last 24 Hours (Table) 03/02/18 Range/Units 16:00 Urine Appearance Cloudy H (Clear) Ur Leukocyte Esterase Large H (Negative) Urine WBC 87 H (0-5) /hpf Urine WBC Clumps Few H (None) /hpf Urine Bacteria Moderate H (None) /hpf Assessment and Plan (1) Transient cerebral ischemia Current Visit: Yes Status: Acute SNOMED Code(s): 443230101 Plan: The patient is an 82-year-old woman admitted to the hospital with episode of word finding difficulty. The patient most likely had a TIA. She is advised to start aspirin to help prevent stroke. Her primary risk factor for stroke is hypertension. Also she has elevated cholesterol.
[2018-03-02] MEDS: ATORVASTATIN 40 MG TAB PO SCH (20:50)
[2018-03-02 22:26] VITALS: TEMP 97
--- NOTE | 2018-03-03 00:59 | P.PN ---
Subjective Progress Note Date: 03/02/18 Principal diagnosis: TIA Patient is a 82-year-old female with known history of hypertension, osteoarthritis and macular degeneration came to ER with complaints of difficulty finding words which last for about 20 minutes. Patient was having expressive aphasia which has completely resolved at this time. Otherwise patient denied any recent illnesses or sick contacts. Denied any focal weakness or blurry vision. No numbness or tingling. Currently she is back to her baseline. Otherwise denied any chest pain or shortness of breath. No history of irregular heartbeat or palpitations. No cough or sputum production. No nausea vomiting or abdominal pain. No dysuria or hematuria . CT head showed no acute process. Mild diffuse age-related cerebral atrophy and mild to moderate small was a ischemic changes. No significant change from her CT Chest x-ray showed cardiomegaly and chronic parenchymal changes without acute process. Abnormal left periaortic level could reflect focal aneurysm CT chest showed eccentric thrombosis aneurysm of the proximal thoracic descending aorta EKG showed sinus tachycardia and PACs On 03/01/2018 Patient denied any complaints of difficulty in finding words today. Symptoms haven't completely resolved. Carotid duplex showed no significant stenosis. Neurology has seen the patient. CT surgery was consulted for thrombosis of the proximal thoracic descending aorta. No complaints of chest pain or shortness of breath. No fever no chills. No other acute overnight issues. 03/02/2018 Patient's is to be slightly confused and repeating words. UA showed urinary tract infection and was started on antibiotics in the form of ceftriaxone. CT surgery recommends repeat CT chest in next 3 months. Otherwise no acute surgical intervention recommended at this time. No fever no chills. No fever no chills. No nausea vomiting or abdominal pain. No chest pain or shortness of breath. All other review of systems negative except the above. Current medications reviewed. Objective - Vital Signs Vital signs: Vital Signs Temp 97 F L 03/03/18 00:00 Pulse 58 L 03/03/18 00:00 Resp 16 03/03/18 00:00 BP 137/68 03/03/18 00:00 Pulse Ox 96 03/03/18 00:00 Intake & Output 03/02/18 03/02/18 03/03/18 06:59 18:59 06:59 Intake Total 620 1640 Balance 620 1640 Weight 58 kg Intake: Oral 620 1640 Other: Voiding Method Toilet Toilet Toilet Bedside Commode Bedside Commode # Voids 1 1 - Exam PHYSICAL EXAMINATION: Patient is lying in the bed comfortably, no acute distress, awake alert and oriented.. HEENT: Normocephalic. Neck is supple. Pupils reactive. Nostrils clear. Oral cavity is moist. Ears reveal no drainage. Neck reveals no JVD, carotid bruits, or thyromegaly. CHEST EXAMINATION: Trachea is central. Symmetrical expansion. Lung arzate clear to auscultation and percussion. CARDIAC: Normal S1, S2 with no gallops. No murmurs ABDOMEN: Soft. Bowel sounds normal. No organomegaly. No abdominal bruits. Extremities: reveal no edema. No clubbing or cyanosis Neurologically awake, alert, oriented x3 with well-coordinated movements. No focal deficits noted Skin: No rash or skin lesions. Psychiatric: Coperative. Nonsuicidal Musculoskeletal: No joint swelling or deformity. Normal range of motion. - Labs CBC & Chem 7: 03/02/18 06:01 03/02/18 06:01 Labs: Abnormal Lab Results - Last 24 Hours (Table) 03/02/18 Range/Units 16:00 Urine Appearance Cloudy H (Clear) Ur Leukocyte Esterase Large H (Negative) Urine WBC 87 H (0-5) /hpf Urine WBC Clumps Few H (None) /hpf Urine Bacteria Moderate H (None) /hpf Microbiology - Last 24 Hours (Table) 03/02/18 16:00 Urine Culture - Preliminary Urine,Clean Catch Assessment and Plan Assessment: Expressive aphasia likely due to TIA. Resolved at this time Acute urinary tract infection Hypertensive urgency on admission. 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 Started on labetalol 200 mg twice a day and Norvasc was added. Laboratory be changed to Coreg. Blood pressure is better controlled now. Continue to monitor blood pressure and titrate medications as needed. Neurology is following. Further recommendations based on the clinical course. Continue with home medications. Time with Patient: Greater than 30
[2018-03-03] MEDS ORDERED: CARVEDILOL 3.125 MG TAB PO SCH (07:30)
[2018-03-03] MEDS: ASPIRIN 325 MG TAB PO SCH (08:59)
[2018-03-03] MEDS: VIT A,C & E-LUTEIN-MINERALS 1 EACH TAB PO SCH (08:59)
[2018-03-03] MEDS: amLODIPine 5 MG TAB PO SCH (08:59)
[2018-03-03] MEDS: HEPARIN SODIUM,PORCINE 5,000 UNIT/ML 1 ML VIAL SQ SCH (08:59)
[2018-03-03 12:01] VITALS: BP 151/82; PULSE 62
== END 2018-03-03 15:54 | disposition home or self-care (01) ==
LOC: EC 13:50 → 3OBS 16:18 → 6SEL 16:21
PROVIDERS: ADMIT Internal Medicine; ATTEND Internal Medicine
DX: R47.01 Aphasia (principal); N39.0 Urinary tract infection, site not specified; I16.0 Hypertensive urgency; I71.2 Thoracic aortic aneurysm, without rupture; M19.90 Unspecified osteoarthritis, unspecified site; H35.30 Unspecified macular degeneration; I10 Essential (primary) hypertension; E78.5 Hyperlipidemia, unspecified; Z91.048 Other nonmedicinal substance allergy status; Z91.14 Patient's other noncompliance with medication regimen; H26.9 Unspecified cataract; H53.8 Other visual disturbances; Z82.49 Family history of ischemic heart disease and other diseases of the circulatory system; Z80.3 Family history of malignant neoplasm of breast; Z83.3 Family history of diabetes mellitus; Z79.82 Long term (current) use of aspirin; Z79.899 Other long term (current) drug therapy; B96.20 Unspecified Escherichia coli [E. coli] as the cause of diseases classified elsewhere
CPT/HCPCS: 99285 ×2; 96372 ×6; 96374 ×2; 96375 ×3; 96376 ×2; 36415; 94760; 93306; 97162; 97165; 92523; 80061; 80053; 80048; 82550; 82553; 84484; 85025 ×2; 85610; 85730; 81001; 87086; 87077; 87186; 71046; 93880; 71260; 70450; G0378 ×4; J2060; J0360; J1644 ×3; J0696; Q9967

== ENCOUNTER 2020-12-03 17:57 | Emergency (ER) | payer MEDICARE ==
[2020-12-03 18:11] VITALS: RESP 18
[2020-12-03] MEDS ORDERED: MORPHINE SULFATE 2 MG/ML SYRINGE IM STA (18:43)
[2020-12-03] MEDS ORDERED: MORPHINE SULFATE 2 MG/ML SYRINGE IVP STA (18:48)
--- NOTE | 2020-12-03 19:03 | ED ---
General Adult HPI - General Chief complaint: Fall Stated complaint: fall Time Seen by Provider: 12/03/20 18:05 Source: patient, EMS, RN notes reviewed, old records reviewed Mode of arrival: EMS Limitations: no limitations - History of Present Illness Initial comments: This is an 85-year-old female who states she tripped while walking out the door and fell on her right wrist and now her right wrist is deformed and in pain. Patient denies hitting her head denies any neck pain patient denies any chest or back pain. Patient denies abdominal pain patient denies any hip or lower extremity pain. Patient states she still sensation in her fingertips. She denies any shoulder pain elbow pain or left hand pain - Related Data Home Medications Medication Instructions Recorded Confirmed Amlodipine (Unknown Dose) 1 tab PO DAILY 12/03/20 12/03/20 Allergies Allergy/AdvReac Type Severity Reaction Status Date / Time adhesive Allergy Rash/Hives Verified 12/03/20 19:20 Review of Systems ROS Statement: Those systems with pertinent positive or pertinent negative responses have been documented in the HPI. ROS Other: All systems not noted in ROS Statement are negative. Past Medical History Past Medical History: Eye Disorder, Hypertension, Osteoarthritis (OA) Additional Past Medical History / Comment(s): Macular Degeneration, past bladder infection, "vaginal itching uses a cream for it" History of Any Multi-Drug Resistant Organisms: None Reported Past Surgical History: Hysterectomy, Joint Replacement, Tonsillectomy Additional Past Surgical History / Comment(s): R hip replacement, R knee replacement, monika cataract, vein stripping Past Anesthesia/Blood Transfusion Reactions: No Reported Reaction Past Psychological History: No Psychological Hx Reported Smoking Status: Never smoker Past Alcohol Use History: Occasional Past Drug Use History: None Reported - Past Family History Father Family Medical History: Diabetes Mellitus Mother Family Medical History: Cancer, Hypertension, Myocardial Infarction ([place]) Additional Family Medical History / Comment(s): Breast, history of aortic aneurysm. General Exam - General Exam Comments Initial Comments: GENERAL: Patient is well-developed and well-nourished. Patient is nontoxic and well- hydrated and is in no acute distress. ENT: Neck is soft and supple. No significant lymphadenopathy is noted. Oropharynx is clear. Moist mucous membranes. Neck has full range of motion without eliciting any pain. EYES: The sclera were anicteric and conjunctiva were pink and moist. Extraocular movements were intact and pupils were equal round and reactive to light. Eyelids were unremarkable. PULMONARY: Unlabored respirations. Good breath sounds bilaterally. No audible rales rhonchi or wheezing was noted. CARDIOVASCULAR: There is a regular rate and rhythm without any murmurs gallops or rubs. ABDOMEN: Soft and nontender with normal bowel sounds. SKIN: Skin is clear with no lesions or rashes and otherwise unremarkable. NEUROLOGIC: Patient is alert and oriented x3. Cranial nerves II through XII are grossly intact. Patient's unable to move the right wrist secondary to pain. There is a gross deformity of the right wrist. MUSCULOSKELETAL: Patient is a gross deformity of the right wrist and very tender to palpation. LYMPHATICS: No significant lymphadenopathy is noted PSYCHIATRIC: Normal psychiatric evaluation. Limitations: no limitations Course Vital Signs 12/03/20 12/03/20 18:04 19:25 Temperature 98.0 F Pulse Rate 58 L 69 Respiratory 18 18 Rate Blood Pressure 188/109 181/92 O2 Sat by Pulse 99 99 Oximetry Procedures - Orthopedic Splinting/Casting Injury #1 Side: right Upper Extremity Injury Location: short arm, wrist Upper Extremity Immobilizer: volar splint Medical Decision Making - Medical Decision Making X-ray of the right wrist shows a distal radius fracture that is comminuted and displaced. I spoke with Dr. Heath about trying to reduce it he advised me just to put a splint on it and have the patient follow-up with him in the office. Disposition Clinical Impression: Fall, Distal radius fracture Disposition: HOME SELF-CARE Condition: Good Instructions (If sedation given, give patient instructions): Fall Prevention for Older Adults (ED), Wrist Fracture in Adults (ED) Is patient prescribed a controlled substance at d/c from ED?: No Referrals: Aman Heath MD [STAFF PHYSICIAN] - 1-2 days Time of Disposition: 19:58
--- NOTE | 2020-12-03 19:12 | XR ---
EXAMINATION TYPE: XR wrist complete RT DATE OF EXAM: 12/03/2020 COMPARISON: NONE HISTORY: Wrist pain. Fall. TECHNIQUE: 4 views FINDINGS: There is acute impacted transverse comminuted fracture distal radial metaphysis. The distal ulna appears intact. Carpal bones are intact. There is moderately severe osteoarthritis at the first carpometacarpal joint. IMPRESSION: Acute impacted distal radius fracture with comminution.
[2020-12-03 20:14] LABS: Appearance,Urine Clear (Clear); Bacteria,Urine Rare /hpf; Bilirubin,Urine Negative (Negative); Blood,Urine Negative (Negative); Color,Urine Light Yellow; Glucose,Urine (UA) Negative (Negative); Hyaline Casts,Urine 1 /lpf (0-2); Ketones,Urine Negative (Negative); Leukocyte Esterase,Urine Trace (Negative); Nitrite,Urine Negative (Negative); PH, Urine 6.5 (5.0-8.0); Protein,Urine Negative (Negative); RBC,Urine 2 /hpf (0-5); Specific Gravity,Urine 1.006 (1.001-1.035); Urobilinogen,Urine <2.0 mg/dL (<2.0); WBC,Urine 3 /hpf (0-5)
[2020-12-03 20:40] VITALS: BP 182/96; PULSE 67; TEMP 98.2
== END 2020-12-03 20:40 | disposition home or self-care (01) ==
LOC: EC 17:57
DX: S52.501A Unspecified fracture of the lower end of right radius, initial encounter for closed fracture (principal); I10 Essential (primary) hypertension; Z79.899 Other long term (current) drug therapy; Z91.048 Other nonmedicinal substance allergy status; Z96.651 Presence of right artificial knee joint; Z96.641 Presence of right artificial hip joint; W01.0XXA Fall on same level from slipping, tripping and stumbling without subsequent striking against object, initial encounter
CPT/HCPCS: 81001; 73110; 99284; 29125; 96374; J2270

== ENCOUNTER → 2020-12-04 | Outpatient (CLI) | payer MEDICARE ==
[2020-12-04 12:59] LABS: HCT 39.4 % (34.0-46.0); MCHC 33.1 g/dL (31.0-37.0); MCV 90.5 fL (80.0-100.0); Mean Platelet Volume 7.8; Platelet Count 239 k/uL (150-450); RBC 4.35 m/uL (3.80-5.40); RDW 13.6 % (11.5-15.5); WBC 5.5 k/uL (3.8-10.6)
[2020-12-04 13:36] LABS: Potassium 4.6 mmol/L (3.5-5.1)
== END | disposition home or self-care (01) ==
LOC: LABPAT 11:55
PROVIDERS: ATTEND Orthopaedic Surgery
DX: Z01.818 Encounter for other preprocedural examination (principal)
CPT/HCPCS: 36415; 80051; 85027; 93005

== ENCOUNTER 2020-12-09 08:01 | Inpatient (IN) | payer MEDICARE ==
[2020-12-05 09:05] VITALS: BMI 20.7
--- NOTE | 2020-12-08 09:27 | HP ---
HISTORY AND PHYSICAL CHIEF COMPLAINT: Right wrist pain. HISTORY OF PRESENT ILLNESS: The patient is an 85-year-old, right-hand dominant, retired female who presents with right wrist pain after injury on 12/03/2020. She fell while walking out of her apartment. She denied loss of consciousness. Initially, she was seen in the emergency room and was placed in a splint. She denies previous problems with that wrist. PAST MEDICAL HISTORY: Significant for hypertension. PAST SURGICAL HISTORY: Negative. CURRENT MEDICATIONS: Current medications include antihypertensives. ALLERGIES: She denies drug allergies. FAMILY HISTORY: Significant for cancer and heart disease. SOCIAL HISTORY: Negative for current tobacco or alcohol use. REVIEW OF SYSTEMS: Sixteen-point review of systems otherwise reviewed and is noncontributory. PHYSICAL EXAMINATION: On examination, the patient is approximately 5 feet 9 inches, 147 pounds of mesomorphic habitus. HEENT exam is nonfocal. Neck is supple. She is nontender about the right shoulder and elbow. On examination of her right wrist, she has moderate dorsal swelling. Skin is intact. She is tender over the distal radius. She has obvious dorsal deformity. Light touch is distally intact. She fires the finger flexors and extensors along with the EPL and FPL. Her distal neurovascular exam appears intact on the right digits. X-rays of the right wrist reviewed in the office show a 4-part intra-articular distal radius fracture with significant dorsal comminution and angulation. Significant articular step-off is noted. IMPRESSION: Right intra-articular distal radius [id number]. RECOMMENDATIONS: I talked to the patient at length regarding her condition and treatment options. After thorough discussion, she opts to proceed with surgery. We will plan to proceed with open reduction and internal fixation utilizing general anesthesia. We will likely potentially perform that as an outpatient procedure. Risks and benefits were discussed at length in layman's terms. MMODL / IJN: [id number] /
[~2020-12-09 08:01] MED LIST: DEXAMETHASONE SOD PHOSPHATE 4 MG/ML 1 ML VIAL IV ONE; HYDROmorphone 0.5 MG/0.5 ML SYRINGE IVP PRN; MIDAZOLAM 2 MG/2 ML VIAL IV PRN; ONDANSETRON 4 MG/2 ML VIAL IVP ONE
[2020-12-09] MEDS: LACTATED RINGERS 1,000 ML IV SCH (08:50)
[2020-12-09] MEDS ORDERED: LIDOCAINE 1% (10MG/ML) FOR IV START INTRADERMA ONE (08:51)
[2020-12-09] MEDS ORDERED: PROPOFOL 10 MG/ML 20 ML VIAL IV ONE (09:28)
[2020-12-09] MEDS ORDERED: LIDOCAINE 1% INJ 10MG/ML (20 ML MDV) ONE (09:28)
[2020-12-09] MEDS ORDERED: ceFAZolin 1,000 MG VIAL ONE (09:28)
[2020-12-09] MEDS ORDERED: hydrALAZINE HCL 20 MG/ML 1 ML VIAL ONE (09:28)
[2020-12-09] MEDS ORDERED: SUCCINYLCHOLINE CHLORIDE 100 MG/5 ML SYR IV ONE (09:28)
[2020-12-09] MEDS ORDERED: fentaNYL (PF) 50 MCG/ML 2 ML AMP ONE (09:28)
[2020-12-09] MEDS ORDERED: HYDROmorphone (PF) 1 MG/ML ONE (09:28)
[2020-12-09] MEDS ORDERED: ceFAZolin 1,000 MG in SODIUM CHLORIDE 0.9% 1,000 ML IRRIGATION ONE (09:58)
[2020-12-09] MEDS ORDERED: LACTATED RINGERS 1,000 ML IV ONE (10:11)
--- NOTE | 2020-12-09 11:04 | P.OP ---
Date of Procedure: 12/09/20 Preoperative Diagnosis: Displaced four-part right intra-articular distal radius fracture Postoperative Diagnosis: Same Procedure(s) Performed: Open reduction and internal fixation right four-part intra-articular distal radius fracture Implants: Arthrex 3-hole standard volar plate Anesthesia: ALDEN Surgeon: Aman Heath Care Support Representative #1: Malcolm Garcia Estimated Blood Loss (ml): 5 Pathology: none sent Condition: stable Disposition: PACU Indications for Procedure: The patient's an 85-year-old [id number] female who presents after falling injuring her right wrist. Upon evaluation she was noted have a displaced intra-articular distal radius fracture. A discussion of the risks and benefits of operative intervention was made with patient. She opted proceed. Operative risks to include infection, neurovascular injury, development of blood clots, possible development of nonunion/malunion, possible posttraumatic osteoarthrosis, possible need for subsequent procedures was discussed. Informed consent was obtained. Operative Findings: As below Description of Procedure: The patient was brought to the operating room, and after induction of general anesthesia the right upper extremity was prepped and draped in normal fashion. The tourniquet was inflated to 250 mmHg. A longitudinal incision was then made extending approximately 7 cm along the flexor carpi radialis. Skin was incised sharply. Subcutaneous tissue divided bluntly. Electrocautery was used for hemostasis. A self-retaining retractor was placed. The FCR sheath was opened and the tendon gently retracted ulnarly with the radial artery retracted radially. The underlying fascia was opened. Contents the carpal canal were then bluntly dissected ulnarly. The pronator quadratus was elevated off the distal radius and the fracture site was exposed. It was cleaned of clot and debris. It was then provisionally reduced with longitudinal traction and manipulation. A standard 3-hole volar plate was then provisionally pinned in place with K wires. Fluoroscopy was used to check the reduction and placement. Both were felt to be adequate. A 3.5 mm cortical screw of the appropriate length was placed in the proximal slotted hole. The distal row was filled with locking screws and pegs of the appropriate length. This was done with the aid of fluoroscopy. The proximal row was filled in a similar fashion. The remaining 3.5 mm proximal cortical screws were placed in the appropriate length. Final fluoroscopic views to include AP/PA/elevated lateral show adequate reduction of this complex fracture pattern with restorationism of the articular surface. The wound was irrigated normal saline. The pronator quadratus was repaired with simple 3-0 Vicryl suture. Subcutaneous tissues reapproximated interrupted 3-0 Vicryl sutures. The skin was reduction 4-0 subcuticular Prolene suture. Steri-Strips were applied as well as a sterile dressing. The tourniquet was deflated less than 1 hour total tourniquet time. A volar splint was placed. The patient was then awoken from general anesthesia and transferred to recovery room in good condition. Blood loss was less than 5 mL. case were incurred. Sponge and needle counts were correct at the end of the case.
[2020-12-09] MEDS ORDERED: ACETAMINOPHEN TAB 325 MG TAB PO PRN (12:05)
[2020-12-09] MEDS ORDERED: HYDROmorphone 0.5 MG/0.5 ML SYRINGE IVP PRN (12:06)
--- NOTE | 2020-12-09 13:58 | FL ---
EXAMINATION TYPE: FL guidance operating room, XR wrist limited RT DATE OF EXAM: 12/09/2020 CLINICAL HISTORY: Right wrist fracture. TECHNIQUE: Fluoroscopy. Limited intraoperative views right wrist. COMPARISON: Right wrist xray 6 days ago.. FINDINGS: Fluoroscopic guidance was provided during open reduction and internal fixation procedure p erformed by Dr. Heath. A total of 34 seconds of fluoroscopic time was utilized during the procedure and 3 spot images was acquired. Intraoperative images obtained show placement of volar fixating plate with multiple fixating screws t hrough comminuted intra-articular fracture distal radial meta-epiphysis. Satisfactory alignment is se en on intraoperative images obtained. IMPRESSION: As Above.
[2020-12-09] MEDS: carvediloL 3.125 MG TAB PO SCH (16:35)
[2020-12-09] MEDS: Acetaminophen-Codeine 300-30mg TAB PO PRN (17:06)
[2020-12-09] MEDS ORDERED: BENZOCAINE/MENTHOL LOZENG 1 EACH LOZENGE MUCOUS MEM PRN (20:30)
[2020-12-10] MEDS: Acetaminophen-Codeine 300-30mg TAB PO PRN ×2 (01:45→09:40)
[2020-12-10] MEDS: amLODIPine 10 MG TAB PO SCH (07:40)
[2020-12-10] MEDS: carvediloL 3.125 MG TAB PO SCH ×2 (07:40→17:35)
[2020-12-10] MEDS: LACTATED RINGERS 1,000 ML IV SCH (10:10)
--- NOTE | 2020-12-10 11:02 | P.PN ---
Subjective Progress Note Date: 12/10/20 Principal diagnosis: Status post ORIF right distal radius fracture Patient is evaluated today at bedside, she is resting comfortably. I was contacted last night by the nursing staff regarding new onset delirium. Advised discontinuing antibiotics and also continuing IV fluids. Consult was placed in internal medicine for further management and workup. I did result patient's daughter today to discuss current medical state. She mentioned that he first ER visit after she initially fell and injured her wrist, they did check for a urinary tract infection due to her change in behavior. She does reside at [facility] assisted-living. Objective - Vital Signs Vital signs: Vital Signs Temp 98.7 F 12/10/20 07:56 Pulse 83 12/10/20 07:56 Resp 16 12/10/20 07:56 BP 176/82 12/10/20 07:56 Pulse Ox 96 12/10/20 07:56 Intake & Output 12/09/20 12/10/20 12/10/20 18:59 06:59 18:59 Intake Total 1501 Output Total 205 300 Balance 1296 -300 Weight 65.3 kg Intake: IV 1251 Intake, IV Titration 250 Amount Lactated Ringers 1,000 ml 250 @ 50 mls/hr IV .Q20H JENNIFER Rx#:[id number] Output: Urine 200 300 Estimated Blood Loss 5 Other: # Voids 2 - Exam Right upper extremity: Postop splint is in good position and condition, the Navi bandage is in good position and condition. She is able to wiggle her fingers with no difficulty. Her sensation to light touch both proximal distal to the splinter intact. Capillary refill is brisk and less than 2 seconds. Assessment and Plan Assessment: Status post ORIF right distal radius fracture Delirium Plan: Await medical recommendations Repeat urinalysis has been ordered Hold narcotics, oral Tylenol as needed Continue use of arm sling, nonweightbearing right upper extremity Plan keep patient overnight for further assessment Time with Patient: Less than 30
[2020-12-10 12:00] LABS: Basophils % (A) 0 %; Eosinophils # (A) 0.1 k/uL (0-0.7); Eosinophils % (A) 1 %; HCT 37.4 % (34.0-46.0); HGB 12.8 gm/dL (11.4-16.0); Lymphocytes # (A) 1.7 k/uL (1.0-4.8); Lymphocytes % (A) 22 %; MCH 30.4 pg (25.0-35.0); MCHC 34.2 g/dL (31.0-37.0); MCV 88.9 fL (80.0-100.0); Mean Platelet Volume 7.7; Monocytes # (A) 0.5 k/uL (0-1.0); Monocytes % (A) 6 %; Neutrophils # (A) 5.5 k/uL (1.3-7.7); Neutrophils % (A) 70 %; Platelet Count 254 k/uL (150-450); RDW 13.5 % (11.5-15.5); WBC 7.9 k/uL (3.8-10.6)
[2020-12-10 12:12] LABS: ALT 12 U/L (4-34); AST 28 U/L (14-36); African American GFR (CKD) 58 (>60 ml/min/1.73 sqM); Albumin 3.5 g/dL (3.5-5.0); Albumin/Globulin Ratio 1.2; Alkaline Phosphatase 93 U/L (38-126); Anion Gap 7 mmol/L; Blood Urea Nitrogen 15 mg/dL (7-17); Calcium 9.7 mg/dL (8.4-10.2); Carbon Dioxide 29 mmol/L (22-30); Chloride 102 mmol/L (98-107); Globulin 2.9 g/dL; Glucose 108 mg/dL (74-99); Non-African American GFR(CKD) 50 (>60 ml/min/1.73 sqM); Potassium 4.2 mmol/L (3.5-5.1); Sodium 138 mmol/L (137-145); Total Protein 6.4 g/dL (6.3-8.2)
--- NOTE | 2020-12-10 12:35 | P.CONS ---
History of Present Illness - Reason for Consult Consult date: 12/10/20 Medical management - Chief Complaint Confusion - History of Present Illness This is a 85-year-old female with past medical history noted below who presented to the emergency room couple of days ago after she had a mechanical fall at home and was having pain in her right wrist. Patient was evaluated in the ER and admitted to the hospital under orthopedic surgery for further evaluation for right wrist fracture. She is postoperative day #1 status post ORIF. Since last night, patient was getting more confused and at times combative. She is having hallucinations and seeing people walking in the room that they don't exist. I was asked to see her for medical management. Patient was quiet and cooperative when I saw her. She is oriented to herself, to the place, and to the year. She noted that she is in the hospital because of her wrist fracture. Her nurse informed me that her current mentation is a lot better. Patient herself denies any specific concerns or complaints. According to nursing staff, patient does not have any underlying dementia and she lives independently at home alone. Review of Systems Review of system: 14 points review of systems were obtained and were negative except to what were mentioned in the HPI. Past Medical History Past Medical History: Eye Disorder, Hypertension, Osteoarthritis (OA) Additional Past Medical History / Comment(s): Macular Degeneration, past bladder infection, "vaginal itching uses a cream for it". fx rt radius History of Any Multi-Drug Resistant Organisms: None Reported Past Surgical History: Hysterectomy, Joint Replacement, Tonsillectomy Additional Past Surgical History / Comment(s): R hip replacement, R knee replacement, monika cataract, vein stripping Past Anesthesia/Blood Transfusion Reactions: No Reported Reaction Past Psychological History: No Psychological Hx Reported Additional Psychological History / Comment(s): lives at [employer]. uses a cane when up. needs glasses and a mag glass and bright light to read. Smoking Status: Never smoker Past Alcohol Use History: Occasional Past Drug Use History: None Reported - Past Family History Father Family Medical History: Diabetes Mellitus Mother Family Medical History: Cancer, Hypertension, Myocardial Infarction ([place]) Additional Family Medical History / Comment(s): Breast, history of aortic aneurysm. Medications and Allergies Home Medications Medication Instructions Recorded Confirmed Type Carvedilol [Coreg] 3.125 mg PO BID 12/05/20 12/09/20 History amLODIPine [Norvasc] 10 mg PO DAILY 12/05/20 12/09/20 History Allergies Allergy/AdvReac Type Severity Reaction Status Date / Time adhesive Allergy Rash/Hives Verified 12/05/20 08:56 Physical Exam Vitals: Vital Signs Temp Pulse Resp BP BP Pulse Ox 12/10/20 07:56 98.7 F 83 16 176/82 96 12/10/20 01:40 98.2 F 87 16 174/81 97 12/09/20 19:05 98.2 F 79 16 168/79 96 12/09/20 14:00 97.5 F L 81 16 154/65 96 12/09/20 12:30 63 16 141/65 96 Intake and Output 12/09/20 12/10/20 12/10/20 22:59 06:59 14:59 Intake Total 250 Output Total 500 Balance -250 Intake: Intake, IV Titration 250 Amount Lactated Ringers 1,000 ml 250 @ 50 mls/hr IV .Q20H JENNIFER Rx#:[id number] Output: Urine 500 Other: # Voids 2 General: The patient is awake and alert, in no distress Eye: there is normal conjunctiva bilaterally. Neck: The neck is supple, there is no JVD. Cardiovascular: Normal S1-S2, no S3-S4, no murmurs. Respiratory: Lungs clear to auscultation bilaterally Gastrointestinal: Abdomen is soft, nontender Musculoskeletal: There is no pedal edema. Neurological:. Speech is normal. Skin: Skin is warm and dry Results CBC & Chem 7: 12/10/20 11:28 12/10/20 11:28 Labs: Abnormal Lab Results - Last 24 Hours (Table) 12/10/20 Range/Units 11:28 Glucose 108 H (74-99) mg/dL Assessment and Plan Assessment: 1. Hospital-acquired delirium, encouraged continuous reorientation. Asked nursing staff if possible to have family members speak to the patient on the phone. I reviewed her lab work today and it's all within acceptable/normal range. I am waiting on a urinalysis to rule out underlying UTI. May use Haldol 0.5 mg orally as needed for severe agitation. We will continue to monitor closely. 2. Right wrist fractures postoperative day #1 status post ORIF. Postoperative care per orthopedic surgery 3. Essential hypertension: Blood pressure well-controlled 4. DVT prophylaxis [facility], I reviewed her medication list and lab work results. We will continue to follow up on the patient closely with you. Thank you for the consultation.
[2020-12-10 13:31] LABS: Appearance,Urine Clear (Clear); Bacteria,Urine Rare /hpf; Bilirubin,Urine Negative (Negative); Blood,Urine Negative (Negative); Color,Urine Colorless; Glucose,Urine (UA) Negative (Negative); Ketones,Urine Negative (Negative); Leukocyte Esterase,Urine Trace (Negative); Nitrite,Urine Negative (Negative); PH, Urine 6.5 (5.0-8.0); Protein,Urine Negative (Negative); RBC,Urine <1 /hpf (0-5); Specific Gravity,Urine 1.004 (1.001-1.035); Squamous Epithelial Cell,Urine <1 /hpf (0-4); Urobilinogen,Urine <2.0 mg/dL (<2.0); WBC,Urine 4 /hpf (0-5)
[2020-12-10] MEDS: ENOXAPARIN 40 MG/0.4 ML SYRINGE SQ SCH (17:08)
[2020-12-10] MEDS: haloperidoL 0.5 MG TAB PO STA ×2 (17:09→17:35)
[2020-12-11] MEDS: Acetaminophen-Codeine 300-30mg TAB PO PRN (02:22)
[2020-12-11] MEDS: LACTATED RINGERS 1,000 ML IV SCH (07:47)
[2020-12-11] MEDS: amLODIPine 10 MG TAB PO SCH (08:24)
[2020-12-11] MEDS: carvediloL 3.125 MG TAB PO SCH ×2 (08:24→17:40)
[2020-12-11] MEDS: ENOXAPARIN 40 MG/0.4 ML SYRINGE SQ SCH (08:28)
--- NOTE | 2020-12-11 11:36 | CT ---
EXAMINATION TYPE: CT brain wo con DATE OF EXAM: 12/11/2020 COMPARISON: 03/19/2018 HISTORY: Altered mental status changes CT DLP: 1115.[address] of the brain was performed. The ventricles, basal cisterns and sulci overlying the cerebral convexities demonstrate mild enlargem ent. There is no evidence for intracranial hemorrhage or sulcal effacement. There is decreased attenuation about the periventricular white matter and deep white matter of both c erebral hemispheres, compatible with chronic small vessel ischemia. Differential diagnosis does inclu de demyelination. No mass effects are seen.No midline shift. 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 Osseous calvarium is intact. If symptoms persist consider MRI. IMPRESSION: 1. Age related atrophic and chronic small vessel ischemic change without acute intracranial process s een at this time.
[2020-12-11] MEDS ORDERED: OLANZapine 2.5 MG TAB PO PRN (12:23)
--- NOTE | 2020-12-11 12:26 | P.PN ---
Subjective Progress Note Date: 12/11/20 Patient was lethargic but easily arousable this morning. She still appears confused. She did not recall that her friend Mariza was visiting her last night. She is otherwise cooperative and appropriate. She answers some questions appropriately. Nursing staff informed me that patient was more agitated overnight. Objective - Vital Signs Vital signs: Vital Signs Temp 98.4 F 12/11/20 07:22 Pulse 74 12/11/20 07:22 Resp 16 12/11/20 07:22 BP 148/92 12/11/20 11:17 Pulse Ox 97 12/11/20 07:22 Intake & Output 12/10/20 12/11/20 12/11/20 18:59 06:59 18:59 Other: Voiding Method Diaper Toilet Incontinent Diaper Incontinent # Voids 1 2 - Exam General: The patient is awake and alert, in no distress Eye: there is normal conjunctiva bilaterally. Neck: The neck is supple, there is no JVD. Cardiovascular: Normal S1-S2, no S3-S4, no murmurs. Respiratory: Lungs clear to auscultation bilaterally Gastrointestinal: Abdomen is soft, nontender Musculoskeletal: There is no pedal edema. Neurological:. Speech is normal. Skin: Skin is warm and dry - Labs CBC & Chem 7: 12/10/20 11:28 12/10/20 11:28 Labs: Abnormal Lab Results - Last 24 Hours (Table) 12/10/20 Range/Units 12:45 Ur Leukocyte Esterase Trace H (Negative) Urine Bacteria Rare H (None) /hpf Assessment and Plan Assessment: 1. Hospital-acquired delirium, encouraged continuous reorientation. Asked nursing staff to have family members speak to the patient on the phone or come visit her to have reorienting her. May use Zyprexa as needed for episodes of agitation. I reviewed her lab work today and it's all within acceptable/normal range. Urinalysis unremarkable. Computed tomography scan of the head with no acute findings. 2. Right wrist fractures postoperative day #2 status post ORIF. Postoperative care per orthopedic surgery 3. Essential hypertension: Blood pressure well-controlled 4. DVT prophylaxis subcu Lovenox
--- NOTE | 2020-12-11 13:19 | P.PN ---
Subjective Progress Note Date: 12/11/20 Principal diagnosis: Status post ORIF right distal radius fracture Patient is evaluated today at bedside, she is resting comfortably. Per nursing staff patient was very agitated last night. Seems to be less agitated today at bedside. She did take off her splints last night, this was reinforced by the nurse today. Workup has been done so far by internal medicine and has not revealed any acute medical processes that would pressure retrieved of delirium. Objective - Vital Signs Vital signs: Vital Signs Temp 98.4 F 12/11/20 07:22 Pulse 74 12/11/20 07:22 Resp 16 12/11/20 12:55 BP 148/92 12/11/20 11:17 Pulse Ox 97 12/11/20 07:22 Intake & Output 12/10/20 12/11/20 12/11/20 18:59 06:59 18:59 Other: Voiding Method Diaper Toilet Incontinent Diaper Incontinent # Voids 1 2 - Exam Right upper extremity: Postop splint was removed today at bedside. Swelling is improved throughout the extremity. Bruising is noted on the dorsal and ventral aspect of the wrist and hand. She is able to wiggle her fingers with no difficulty. Her sensation to light touch both proximal distal to the splint is intact. Capillary refill is brisk and less than 2 seconds. - Labs CBC & Chem 7: 12/10/20 11:28 12/10/20 11:28 Labs: Abnormal Lab Results - Last 24 Hours (Table) 12/10/20 Range/Units 12:45 Ur Leukocyte Esterase Trace H (Negative) Urine Bacteria Rare H (None) /hpf Assessment and Plan Assessment: Status post ORIF right distal radius fracture Delirium Plan: A short arm fiberglass cast was applied today at bedside, she tolerated this well Internal medicine recommendations Pain control, continue use of Tylenol narcotics Physical therapy and occupational therapy evaluation has been submitted. I discussed with case management possibility of rehab. We will await recommendations for that. I'm hoping that the delirium continues to improve and patient can go back to the independent living facility that she is at. We will continue to follow Time with Patient: Less than 30
[2020-12-12] MEDS: ENOXAPARIN 40 MG/0.4 ML SYRINGE SQ SCH (09:11)
[2020-12-12] MEDS: amLODIPine 10 MG TAB PO SCH (09:11)
[2020-12-12] MEDS: carvediloL 3.125 MG TAB PO SCH (09:11)
--- NOTE | 2020-12-12 11:52 | P.PN ---
Subjective Progress Note Date: 12/12/20 Principal diagnosis: Status post ORIF right distal radius fracture Patient is evaluated today at bedside, she is resting comfortably. Delirium remains present, and his state about the same over the last few days. Internal medicine's continue to follow the patient. Patient answer some of my questions adequately. She denies any acute pain of the right wrist. The cast that is present on the right wrist is well maintained at this time. Objective - Vital Signs Vital signs: Vital Signs Temp 98.2 F 12/12/20 07:06 Pulse 52 L 12/12/20 07:06 Resp 16 12/12/20 07:06 BP 143/102 12/12/20 07:06 Pulse Ox 98 12/12/20 07:06 Intake & Output 12/11/20 12/12/20 12/12/20 18:59 06:59 18:59 Intake Total 100 236 Balance 100 236 Intake: Oral 100 236 Other: Voiding Method Toilet Toilet Toilet Diaper Diaper Diaper Incontinent Incontinent Incontinent # Voids 3 1 # Bowel Movements 1 - Exam Right upper extremity: Fiberglass cast is in good position. She is able to wiggle her fingers with no difficulty. Her sensation to light touch both proximal distal to the splint is intact. Capillary refill is brisk and less than 2 seconds. - Labs CBC & Chem 7: 12/10/20 11:28 12/10/20 11:28 Assessment and Plan Assessment: Status post ORIF right distal radius fracture Delirium Plan: Continue to avoid narcotics with this patient. Hoping that the delirium is been related to the recent surgery and anesthesia medications. This may take an extended period to improve. Nonweightbearing right upper extremity Internal medicine recommendations Pain control, continue use of Tylenol Patient has been accepted by subacute rehab, plan for discharge today Time with Patient: Less than 30
--- NOTE | 2020-12-12 11:55 | P.DS ---
Providers Date of admission: 12/09/2020 Expected date of discharge: 12/12/20 Attending physician: Aman Heath Primary care physician: Sammie Eubanks Hospital Course: Date of admission: 12/09/2020 Date of discharge: 12/12/2020 Admission diagnosis: Status post open reduction internal fixation right distal radius fracture Discharge diagnosis: Same Attending physician: Dr. Heath Surgical procedures: Open reduction internal fixation right distal radius fracture Brief history: Patient is a 85-year-old female who was evaluated in the outpatient setting by Dr. Heath for an injury to her right wrist. It was determined that the fracture would need surgical fixation. She was scheduled for surgery for 12/09/2020. Hospital course: Details of patient's surgery can be found in operative report. Patient tolerated the procedure well and was subsequently transported to orthopedic floor. Patient's orthopeidc and medical care was provided daily. Patient was noted to have a relatively uneventful postoperative course. Patient reported satisfactory pain control with oral pain medications by postoperative day 0. During inpatient stay she developed an acute episode of delirium that has continued to wax and wane. There was concern of the patient returning back to the assisted living home due to it being more independent than a subacute rehab facility. With the current medical state we do recommend placement in subacute rehab until her symptoms have improved. Patient will likely need outpatient follow-up with her primary care doctor for further workup if symptoms continue. Discharge condition/disposition: Patient will be discharged rehab in stable condition. Discharge medications: Instructions are given on resumption of patient's normal daily medications per primary care recommendation, in addition patient will be prescribed Tylenol 500mg Discharge instructions: 1. Do not remove the splint 2. Keep splint clean and dry, keep covered while showering 3. Ice and elevate when necessary. Do not exceed 20 minutes per hour with ice pack. 4. Follow up in office at 2 weeks postop with Angel Garcia PA-C 5. Follow up with your primary care doctor 7-10 days after discharge. 6. Contact [facility] with any questions, . Procedures: Open reduction internal fixation right distal radius fracture Patient Condition at Discharge: Good Plan - Discharge Summary Discharge Rx Participant: No New Discharge Prescriptions: New Acetaminophen Tab [Tylenol Tab] 500 mg PO Q6H PRN #30 tablet PRN Reason: Pain No Action amLODIPine [Norvasc] 10 mg PO DAILY Carvedilol [Coreg] 3.125 mg PO BID Discharge Medication List Carvedilol [Coreg] 3.125 mg PO BID 12/05/20 [History] amLODIPine [Norvasc] 10 mg PO DAILY 12/05/20 [History] Acetaminophen Tab [Tylenol Tab] 500 mg PO Q6H PRN #30 tablet 12/12/20 [Rx] Follow up Appointment(s)/Referral(s): Malcolm Garcia PAC [[facility]YSIC[facility]] - 12/26/20 2:30 pm Patient Instructions/Handouts: ORIF of a Wrist Fracture (DC) Activity/Diet/Wound Care/Special Instructions: Orthopedic discharge instructions: 1. Do not remove the splint 2. Keep splint dry and covered while showering 3. Ice and elevate often 4. Plan for follow up at [facility] in 2 weeks, contact office with any questions Discharge Disposition: TRANSFER TO SNF/ECF
--- NOTE | 2020-12-12 12:25 | P.PN ---
Subjective Progress Note Date: 12/12/20 Patient is doing better today. Her mentation improved significantly compared to yesterday. No episode of agitation overnight reported by nursing staff. Objective - Vital Signs Vital signs: Vital Signs Temp 98.2 F 12/12/20 07:06 Pulse 52 L 12/12/20 07:06 Resp 16 12/12/20 07:06 BP 143/102 12/12/20 07:06 Pulse Ox 98 12/12/20 07:06 Intake & Output 12/11/20 12/12/20 12/12/20 18:59 06:59 18:59 Intake Total 100 236 Balance 100 236 Intake: Oral 100 236 Other: Voiding Method Toilet Toilet Toilet Diaper Diaper Diaper Incontinent Incontinent Incontinent # Voids 3 1 # Bowel Movements 1 - Exam General: The patient is awake and alert, in no distress Eye: there is normal conjunctiva bilaterally. Neck: The neck is supple, there is no JVD. Cardiovascular: Normal S1-S2, no S3-S4, no murmurs. Respiratory: Lungs clear to auscultation bilaterally Gastrointestinal: Abdomen is soft, nontender Musculoskeletal: There is no pedal edema. Neurological:. Speech is normal. Skin: Skin is warm and dry - Labs CBC & Chem 7: 12/10/20 11:28 12/10/20 11:28 Assessment and Plan Assessment: 1. Hospital-acquired delirium, encouraged continuous reorientation. I reviewed her lab work and it's all within acceptable/normal range. Urinalysis unremarkable. Computed tomography scan of the head with no acute findings. May use Zyprexa as needed 2. Right wrist fractures postoperative day #3 status post ORIF. Postoperative care per orthopedic surgery 3. Essential hypertension: Blood pressure well-controlled Patient is medically cleared for discharge to subacute rehab
[2020-12-12 13:39] VITALS: BP 144/81; PULSE 62; RESP 12; TEMP 98.7
== END 2020-12-12 15:10 | DRG 511 ==
LOC: OR 08:01 → 4SSUR 11:02 → OR 12-10 09:44 → OBSVTOIN 12-11 13:53
PROVIDERS: ADMIT Orthopaedic Surgery; ATTEND Orthopaedic Surgery
PROC: 0PSH04Z Reposition Right Radius with Internal Fixation Device, Open Approach (ICD-10-PCS; principal; 2020-12-09 09:35)
DX: S52.571A Other intraarticular fracture of lower end of right radius, initial encounter for closed fracture (principal); R44.3 Hallucinations, unspecified; W18.30XA Fall on same level, unspecified, initial encounter; Y92.009 Unspecified place in unspecified non-institutional (private) residence as the place of occurrence of the external cause; Y93.01 Activity, walking, marching and hiking; I10 Essential (primary) hypertension; Z79.899 Other long term (current) drug therapy; Z82.49 Family history of ischemic heart disease and other diseases of the circulatory system; Z83.3 Family history of diabetes mellitus; Z90.710 Acquired absence of both cervix and uterus; Z96.641 Presence of right artificial hip joint; Z96.651 Presence of right artificial knee joint; Z98.42 Cataract extraction status, left eye; Z98.41 Cataract extraction status, right eye; Z87.440 Personal history of urinary (tract) infections; I25.2 Old myocardial infarction; M19.90 Unspecified osteoarthritis, unspecified site; Z88.6 Allergy status to analgesic agent; H35.30 Unspecified macular degeneration; R45.1 Restlessness and agitation
CPT/HCPCS: 70450; 80053; 81001; 85025

== ENCOUNTER 2021-11-14 03:10 | Inpatient (IN) | payer MEDICARE ==
[2021-11-14 03:22] VITALS: TEMP 98.3
[2021-11-14 04:16] LABS: Basophils % (A) 0 %; Eosinophils # (A) 0.2 k/uL (0-0.7); Eosinophils % (A) 2 %; HCT 42.1 % (34.0-46.0); HGB 13.8 gm/dL (11.4-16.0); Lymphocytes % (A) 30 %; MCHC 32.9 g/dL (31.0-37.0); MCV 91.3 fL (80.0-100.0); Mean Platelet Volume 8.4; Monocytes # (A) 0.5 k/uL (0-1.0); Monocytes % (A) 5 %; Neutrophils # (A) 6.1 k/uL (1.3-7.7); Neutrophils % (A) 62 %; Platelet Count 269 k/uL (150-450); RDW 13.6 % (11.5-15.5); WBC 9.8 k/uL (3.8-10.6)
[2021-11-14 04:23] LABS: Albumin 3.9 g/dL (3.5-5.0); Calcium 9.6 mg/dL (8.4-10.2); Magnesium 1.9 mg/dL (1.6-2.3); Potassium 4.4 mmol/L (3.5-5.1); Total Bilirubin 0.9 mg/dL (0.2-1.3); Total Protein 6.9 g/dL (6.3-8.2)
[2021-11-14 04:43] LABS: INR 1.1 (<1.2); Partial Thromboplastin Time 29.2 sec (22.0-30.0); Prothrombin Time 11.3 sec (9.0-12.0)
--- NOTE | 2021-11-14 05:11 | CT ---
EXAMINATION TYPE: CT angio thor/abd pel aorta DATE OF EXAM: 11/14/2021 COMPARISON: Chest CT scan 02/28/2018 HISTORY: R/O AAA CT DLP: 1120 mGycm Automated exposure control for dose reduction was used. CONTRAST: Performed with IV Contrast, patient injected with 80 mL of Isovue 370. Images obtained from the thoracic inlet to the floor the pelvis without and with IV contrast. There a re Three-D postprocessed images. 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 There is dissection of the descending thoracic aorta. There is some opacification of the false lumen on the right latera l aspect. There is no evidence of filling defect in the pulmonary arteries. There are no hilar masses. There is mild subsegmental atelectasis at the lung bases. Heart is enlarged. There is no pericardial effusion . There is no pleural effusion. There is right upper quadrant elongated fluid structure measuring 11.6 cm x 3.8 cm and consistent wit h dilated gallbladder. Liver shows no focal defect. Spleen is intact. There is no evidence of pancrea tic mass. There is opacification of both kidneys. Left kidney shows decreased nephrogram with hydrone phrosis. There is dilated left ureter and 1 cm obstructing calculus in the mid left ureter. The right kidney shows a 6 mm calculus posteriorly. There is no perinephric fluid. Abdominal aorta is atheromatous. There is no retroperitoneal adenopathy. There is arterial flow in the celiac artery an d superior mesenteric artery. There is arterial flow in both renal arteries. There is plaque formatio n in the renal arteries. There is arterial flow in the iliac and femoral arteries. No evidence of dis section in the abdominal aorta and its branches. There are numerous diverticula in the sigmoid colon. There is no diverticulitis. 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 There is dissection of the descending thoracic aorta which is a change compared to old exam. The mid descending thoracic aorta measures 3.3 cm with thrombus and increased 7 mm in diameter compared to old exam. There is obstructing large calculus mid left ureter with left-sided hydronephrosis and decreased neph rogram. This is probably chronic. There is left renal mild cortical thinning. Nonobstructing right-si ded renal calculus. Dilated gallbladder with mixed attenuation. Gallbladder mass is possible. Follow-up recommended.
[2021-11-14] MEDS ORDERED: fentaNYL (PF) 50 MCG/ML 2 ML AMP IVP STA (05:39)
[2021-11-14] MEDS: ESMOLOL IN SODIUM CHLORIDE PMX 2.5 GM in SALINE 1 250ML.BAG IV ONE ×2 (05:58→10:23)
--- NOTE | 2021-11-14 06:30 | ED ---
Chest Pain HPI - General Chief Complaint: Chest Pain Stated Complaint: Chest Pain Time Seen by Provider: 11/14/21 03:24 Source: patient Mode of arrival: EMS Limitations: physical limitation - History of Present Illness Initial Comments: This patient is an 86-year-old woman who presents with complaint that she is having thoracic back pain. She indicates the pain is in the upper back between her scapula all across the back. She has a difficult time characterizing the pain. She does note that it started in her upper chest tonight and then seemed to move into her back. She states there is no pain in the chest currently. She has not noted any associated symptoms. No history of similar pain. MD Complaint: chest pain, other -: hour(s) Onset: during rest Pain Location: substernal Pain Radiation: back Severity: severe Quality: aching Consistency: now resolved (Partially resolved) Improves With: nothing Worsens With: nothing Treatments Prior to Arrival: none - Related Data Home Medications Medication Instructions Recorded Confirmed Losartan [Cozaar] 25 mg PO DAILY 11/14/21 11/14/21 Metoprolol Succinate (ER) [Toprol 50 mg PO DAILY PRN 11/14/21 11/14/21 Xl] Potassium (Unknown Dose) 1 tab PO DAILY 11/14/21 11/14/21 QUEtiapine [SEROquel] 25 mg PO DAILY 11/14/21 11/14/21 Rivaroxaban [Xarelto] 20 mg PO DAILY 11/14/21 11/14/21 Sertraline [Zoloft] 25 mg PO DAILY 11/14/21 11/14/21 Allergies Allergy/AdvReac Type Severity Reaction Status Date / Time adhesive Allergy Rash/Hives Verified 11/14/21 03:22 Review of Systems ROS Statement: Those systems with pertinent positive or pertinent negative responses have been documented in the HPI. ROS Other: All systems not noted in ROS Statement are negative. Constitutional: Denies: fever, chills, weakness Respiratory: Denies: cough, dyspnea, hemoptysis Cardiovascular: Reports: as per HPI, chest pain. Denies: palpitations, orthopnea, edema, syncope Gastrointestinal: Denies: abdominal pain, vomiting, diarrhea Genitourinary: Denies: hematuria Musculoskeletal: Reports: as per HPI, back pain Skin: Denies: rash Neurological: Denies: headache, weakness, numbness, paresthesias EKG Findings - EKG Results: EKG: interpreted by ERMD, sinus rhythm (With occasional PVC, rate 60 bpm), normal axis - Blocks, [place], Hypertrophy, ST Abn: Chamber hypertrophy or enlargement: left ventricular hypertrophy or enlargement (LVE) (With repolarization abnormality) Past Medical History Past Medical History: Eye Disorder, Hypertension, Osteoarthritis (OA) Additional Past Medical History / Comment(s): Macular Degeneration, past bladder infection, "vaginal itching uses a cream for it". fx rt radius History of Any Multi-Drug Resistant Organisms: None Reported Past Surgical History: Hysterectomy, Joint Replacement, Tonsillectomy Additional Past Surgical History / Comment(s): R hip replacement, R knee replacement, monika cataract, vein stripping Past Anesthesia/Blood Transfusion Reactions: No Reported Reaction Past Psychological History: No Psychological Hx Reported Smoking Status: Never smoker Past Alcohol Use History: Occasional Past Drug Use History: None Reported - Past Family History Father Family Medical History: Diabetes Mellitus Mother Family Medical History: Cancer, Hypertension, Myocardial Infarction ([place]) Additional Family Medical History / Comment(s): Breast, history of aortic aneurysm. General Exam Limitations: physical limitation General appearance: alert, in no apparent distress Head exam: Present: atraumatic, normocephalic Eye exam: Present: normal appearance. Absent: scleral icterus, conjunctival injection ENT exam: Present: mucous membranes dry Neck exam: Present: normal inspection Respiratory exam: Present: normal lung sounds bilaterally. Absent: respiratory distress, wheezes, rales, rhonchi, stridor, chest wall tenderness, accessory muscle use Cardiovascular Exam: Present: regular rate, normal rhythm, systolic murmur. Absent: diastolic murmur, rubs, gallop GI/Abdominal exam: Present: soft. Absent: distended, tenderness, guarding, rebound, rigid, mass Extremities exam: Present: normal inspection, normal capillary refill. Absent: pedal edema, calf tenderness Back exam: Present: normal inspection. Absent: CVA tenderness (R), CVA tenderness (L) Neurological exam: Present: alert Skin exam: Present: warm, dry, intact, normal color. Absent: rash Course Vital Signs 11/14/21 11/14/21 11/14/21 03:17 05:14 06:17 Temperature 98.3 F Pulse Rate 66 71 63 Respiratory 20 16 17 Rate Blood Pressure 157/78 231/122 213/103 O2 Sat by Pulse 99 100 100 Oximetry 11/14/21 11/14/21 11/14/21 07:04 07:44 07:57 Temperature Pulse Rate 66 76 71 Respiratory 16 18 16 Rate Blood Pressure 203/116 204/117 198/117 O2 Sat by Pulse 99 95 95 Oximetry Chest Pain MDM - MDM 's patient is an 86-year-old woman found to have Type B thoracic aortic dissection. Case discussed with Dr. Manzo who states that he will accept the patient, and requests she be transferred to the ICU at [facility]. The patient started on esmolol drip with goal to keep systolic blood pressure below 120 heart rate below 60. Case D/W Dr. Ibarra. His recommendations are incorporated and he will see patient. I did make one attempt to start an arterial line for this patient. I did cannulate the artery in the left femoral area but the wire would not feed and then the patient refused any further attempt. Critical Care Time Critical Care Time: Yes (35 minutes) Disposition Clinical Impression: Descending thoracic aortic aneurysm Disposition: OTHER INSTITUTION NOT DEFINED Condition: Critical Referrals: Sammie Eubanks DO [Primary Care Provider] - 1-2 days
--- NOTE | 2021-11-14 08:28 | P.GSCN ---
History of Present Illness Consult date: 11/14/21 Reason for Consult: TAA and thoracic aortic dissection History of present illness: This patient is an 86-year-old female with history of descending thoracic aortic aneurysm who presents with complaint that she is having thoracic back pain onset yesterday evening. She indicates the pain was in the upper back between her scapula all across the back. She was seen in the emergency department and had a CTA of the chest which demonstrated large thoracic aneurysm with dissection extending to the mid thoracic aorta without extravasation. She states there is no pain in the chest currently. She denies any pain in her legs or feet. Denies any fevers, chills, or shortness of breath. Review of Systems All systems: negative (what is mentioned in the HPI or past medical history) Past Medical History Past Medical History: Eye Disorder, Hypertension, Osteoarthritis (OA) Additional Past Medical History / Comment(s): Macular Degeneration, past bladder infection, "vaginal itching uses a cream for it". fx rt radius, Descending thoracic aortic aneurysm History of Any Multi-Drug Resistant Organisms: None Reported Past Surgical History: Hysterectomy, Joint Replacement, Tonsillectomy Additional Past Surgical History / Comment(s): R hip replacement, R knee replac ement, monika cataract, vein stripping Past Anesthesia/Blood Transfusion Reactions: No Reported Reaction Past Psychological History: No Psychological Hx Reported Smoking Status: Never smoker Past Alcohol Use History: Occasional Past Drug Use History: None Reported - Past Family History Father Family Medical History: Diabetes Mellitus Mother Family Medical History: Cancer, Hypertension, Myocardial Infarction ([place]) Additional Family Medical History / Comment(s): Breast, history of aortic aneurysm. Medications and Allergies Home Medications Medication Instructions Recorded Confirmed Type Losartan [Cozaar] 25 mg PO DAILY 11/14/21 11/14/21 History Metoprolol Succinate (ER) [Toprol 50 mg PO DAILY PRN 11/14/21 11/14/21 History Xl] Potassium (Unknown Dose) 1 tab PO DAILY 11/14/21 11/14/21 History QUEtiapine [SEROquel] 25 mg PO DAILY 11/14/21 11/14/21 History Rivaroxaban [Xarelto] 20 mg PO DAILY 11/14/21 11/14/21 History Sertraline [Zoloft] 25 mg PO DAILY 11/14/21 11/14/21 History Allergies Allergy/AdvReac Type Severity Reaction Status Date / Time adhesive Allergy Rash/Hives Verified 11/14/21 03:22 Surgical - Exam Vital Signs Temp Pulse Resp BP Pulse Ox 98.3 F 66 20 157/78 99 11/14/21 03:17 11/14/21 03:17 11/14/21 03:17 11/14/21 03:17 11/14/21 03:17 - General well developed, well nourished, no distress - Eyes PERRL, normal ocular movement - ENT hard of hearing normal pinna, normal nares - Neck no masses - Respiratory normal expansion, normal respiratory effort, clear to percussion - Cardiovascular Rhythm: regular - Abdomen Abdomen: soft, non tender - Integumentary no rash - Neurologic normal coordination, normal sensation - Musculoskeletal normal posture - Psychiatric oriented to time, oriented to person, oriented to place, speech is normal Results - Labs 11/14/21 03:51 11/14/21 03:51 Abnormal Lab Results - Last 24 Hours (Table) 11/14/21 11/14/21 Range/Units 03:51 03:51 D-Dimer 3.16 H (<0.60) mg/L FEU Sodium 135 L (137-145) mmol/L Carbon Dioxide 21 L (22-30) mmol/L BUN 20 H (7-17) mg/dL Creatinine 1.08 H (0.52-1.04) mg/dL Glucose 141 H (74-99) mg/dL Alkaline Phosphatase 149 H (38-126) U/L Diabetes panel 11/14/21 Range/Units 03:51 Sodium 135 L (137-145) mmol/L Potassium 4.4 (3.5-5.1) mmol/L Chloride 103 (98-107) mmol/L Carbon Dioxide 21 L (22-30) mmol/L BUN 20 H (7-17) mg/dL Creatinine 1.08 H (0.52-1.04) mg/dL Glucose 141 H (74-99) mg/dL Calcium 9.6 (8.4-10.2) mg/dL AST 26 (14-36) U/L ALT 13 (4-34) U/L Alkaline Phosphatase 149 H (38-126) U/L Total Protein 6.9 (6.3-8.2) g/dL Albumin 3.9 (3.5-5.0) g/dL Calcium panel 11/14/21 Range/Units 03:51 Calcium 9.6 (8.4-10.2) mg/dL Albumin 3.9 (3.5-5.0) g/dL Pituitary panel 11/14/21 Range/Units 03:51 Sodium 135 L (137-145) mmol/L Potassium 4.4 (3.5-5.1) mmol/L Chloride 103 (98-107) mmol/L Carbon Dioxide 21 L (22-30) mmol/L BUN 20 H (7-17) mg/dL Creatinine 1.08 H (0.52-1.04) mg/dL Glucose 141 H (74-99) mg/dL Calcium 9.6 (8.4-10.2) mg/dL Adrenal panel 11/14/21 Range/Units 03:51 Sodium 135 L (137-145) mmol/L Potassium 4.4 (3.5-5.1) mmol/L Chloride 103 (98-107) mmol/L Carbon Dioxide 21 L (22-30) mmol/L BUN 20 H (7-17) mg/dL Creatinine 1.08 H (0.52-1.04) mg/dL Glucose 141 H (74-99) mg/dL Calcium 9.6 (8.4-10.2) mg/dL Total Bilirubin 0.9 (0.2-1.3) mg/dL AST 26 (14-36) U/L ALT 13 (4-34) U/L Alkaline Phosphatase 149 H (38-126) U/L Total Protein 6.9 (6.3-8.2) g/dL Albumin 3.9 (3.5-5.0) g/dL - Imaging CT scan - chest: report reviewed, image reviewed Assessment and Plan Assessment: #1 acute dissection of thoracic aorta #2 expanding descending thoracic aortic aneurysm now measuring 6.1 cm from 5 cm previously #3 uncontrolled hypertension #4 elevated d-dimer likely secondary to acute dissection Plan: Patient was seen and examined in the emergency department. She is currently without any chest pain or back pain. I did review the computed tomography scan with her in full detail which does demonstrate an acute dissection as well as increasing size of descending thoracic aortic aneurysm. During my discussion with her she expressed concern and hesitancy for any surgical intervention. I did give her options including endovascular repair which may involve a carotid subclavian bypass due to the proximity to the left subclavian artery. She will also need medical management which she is currently on an Esmolol drip with minimal improvement of her blood pressure. She does have a home care liaison Dr. Hearn and states that she would like him to see her before she makes a final decision on surgical intervention. At this point we were going to transfer her down to [facility] for definitive surgical intervention but if she is refusing surgery at this time there is no need for urgent transfer. We will consult cardiology to help assist us in blood pressure management as well as admitted to the ICU. I discussed with the emergency department need for arterial line for better monitoring of her blood pressure. His only she is stable and her pain continues to resolve and no surgical emergency is needed at this time. My recommendation is to perform a endovascular repair with stenting and possible carotid subclavian bypass. We will continue to monitor and if she decides for surgical intervention we will then initiate transfer. Thank you for allowing me to participate in this patient's care.
[2021-11-14] MEDS ORDERED: ACETAMINOPHEN TAB 325 MG TAB PO PRN (08:45)
[2021-11-14] MEDS ORDERED: NALOXONE 0.4 MG/ML 1 ML VIAL IV PRN (08:45)
[2021-11-14 08:57] VITALS: RESP 18
[2021-11-14 09:27] LABS: Glucose,Whole Blood 129 mg/dL (75-99)
[2021-11-14] MEDS: HYDROmorphone 0.5 MG/0.5 ML SYRINGE IVP PRN ×2 (09:32→15:26)
--- NOTE | 2021-11-14 10:53 | P.CRDCN ---
History of Present Illness History of present illness: This is Dr. Ibarra dictating a consult on this patient The patient was interviewed and examined IMPRESSION / ASSESSMENT: Aortic dissection descending thoracic, seen by vascular surgery Uncontrolled hypertension Known aortic aneurysm Elevated d-dimer consistent with aortic dissection with fibrinolysis of thrombus in the false lumen PLAN: Continue IV esmolol Start labetalol 200 mg twice daily and gradually maximize Start valsartan 80 mg twice daily, gradually maximize Watch BMP Start atorvastatin 20 mg by mouth daily The vascular surgeon is recommending repair of the descending thoracic aorta how the patient seems to have refused surgery Blood pressure control HPI 86-year-old female complaining of upper back pain and pain in between her scapula. The discomfort started last night. When I examined her she could not remember her symptoms. She denied any chest discomfort at this time no upper back discomfort no dizziness no shortness of breath She is lying comfortably in bed no orthopnea I spoke to Dr. Manzo ROS: No fever chills or rigors, no cough, phlegm or expectoration, no nausea, vomiting or diarrhea, no hematuria, dysuria, no musculoskeletal complaints, no strokes or seizures, no skin lesions. EXAMINATION: Patient is on IV esmolol blood pressure 165/96 and 190 50 117 and 180/107 mmHg pulse rate in the 60s Breath sounds are reduced bilaterally Systolic murmur No carotid bruits dose up given bruits Femoral pulses are well palpable Extremities are warm Radial pulses are well palpable REVIEW OF LABS, ECG & MEDICAL DATA 6 cm aneurysm increased by 1 cm compared to previous computed tomography scan with dissection of the descending aorta, thoracic Twelve-lead EKG shows sinus rhythm normal [place] narrow QRS T-wave inversions V4 to V6 White count normal at 9.8 D-dimer elevated at 3.16 Sodium 135 potassium 4.4 Creatinine 1.08 Past Medical History Past Medical History: Eye Disorder, Hypertension, Osteoarthritis (OA) Additional Past Medical History / Comment(s): Macular Degeneration, past bladder infection, "vaginal itching uses a cream for it". fx rt radius History of Any Multi-Drug Resistant Organisms: None Reported Past Surgical History: Hysterectomy, Joint Replacement, Tonsillectomy Additional Past Surgical History / Comment(s): R hip replacement, R knee replacement, monika cataract, vein stripping Past Anesthesia/Blood Transfusion Reactions: No Reported Reaction Past Psychological History: No Psychological Hx Reported Smoking Status: Never smoker Past Alcohol Use History: Occasional Past Drug Use History: None Reported - Past Family History Father Family Medical History: Diabetes Mellitus Mother Family Medical History: Cancer, Hypertension, Myocardial Infarction ([place]) Additional Family Medical History / Comment(s): Breast, history of aortic aneurysm. Medications and Allergies Home Medications Medication Instructions Recorded Confirmed Type Losartan [Cozaar] 25 mg PO DAILY 11/14/21 11/14/21 History Metoprolol Succinate (ER) [Toprol 50 mg PO DAILY PRN 11/14/21 11/14/21 History Xl] Potassium (Unknown Dose) 1 tab PO DAILY 11/14/21 11/14/21 History QUEtiapine [SEROquel] 25 mg PO DAILY 11/14/21 11/14/21 History Rivaroxaban [Xarelto] 20 mg PO DAILY 11/14/21 11/14/21 History Sertraline [Zoloft] 25 mg PO DAILY 11/14/21 11/14/21 History Allergies Allergy/AdvReac Type Severity Reaction Status Date / Time adhesive Allergy Rash/Hives Verified 11/14/21 03:22 Physical Exam Vitals: Vital Signs Temp Pulse Resp BP Pulse Ox 11/14/21 10:00 66 18 165/96 97 11/14/21 09:00 67 195/117 97 11/14/21 08:56 65 18 188/107 95 11/14/21 07:57 71 16 198/117 95 11/14/21 07:44 76 18 204/117 95 11/14/21 07:04 66 16 203/116 99 11/14/21 06:17 63 17 213/103 100 11/14/21 05:14 71 16 231/122 100 11/14/21 03:17 98.3 F 66 20 157/78 99 Intake and Output 11/13/21 11/14/21 11/14/21 22:59 06:59 14:59 Intake Total 15.798 234.202 Balance 15.798 234.202 Intake: Intake, IV Titration 15.798 234.202 Amount Esmolol in Sodium 15.798 234.202 Chloride Pmx 2.5 gm In Saline 1 250ml.bag @ 50 MCG/KG/MIN 17.554 mls/hr IV .[id number] ONE Rx#: [id number] Other: Weight 58.513 kg Results 11/14/21 03:51 11/14/21 03:51 Cardiac Enzymes 11/14/21 11/14/21 Range/Units 03:51 03:51 AST 26 (14-36) U/L Troponin I <0.012 (0.000-0.034) ng/mL Coagulation 11/14/21 Range/Units 03:51 PT 11.3 (9.0-12.0) sec APTT 29.2 (22.0-30.0) sec CBC 11/14/21 Range/Units 03:51 WBC 9.8 (3.8-10.6) k/uL RBC 4.60 (3.80-5.40) m/uL Hgb 13.8 (11.4-16.0) gm/dL Hct 42.1 (34.0-46.0) % Plt Count 269 (150-450) k/uL Comprehensive Metabolic Panel 11/14/21 Range/Units 03:51 Sodium 135 L (137-145) mmol/L Potassium 4.4 (3.5-5.1) mmol/L Chloride 103 (98-107) mmol/L Carbon Dioxide 21 L (22-30) mmol/L BUN 20 H (7-17) mg/dL Creatinine 1.08 H (0.52-1.04) mg/dL Glucose 141 H (74-99) mg/dL Calcium 9.6 (8.4-10.2) mg/dL AST 26 (14-36) U/L ALT 13 (4-34) U/L Alkaline Phosphatase 149 H (38-126) U/L Total Protein 6.9 (6.3-8.2) g/dL Albumin 3.9 (3.5-5.0) g/dL Current Medications Generic Name Dose Route Start Last Admin Trade Name Freq PRN Reason Stop Dose Admin Acetaminophen 650 mg 11/14/21 08:45 Acetaminophen Tab 325 Mg Tab PO Q4HR PRN Fever and/or Mild Pain Hydromorphone HCl 0.5 mg 11/14/21 08:45 11/14/21 09:32 Hydromorphone 0.5 Mg/0.5 Ml Syringe IVP 0.5 mg Q2HR PRN Administration Pain Scale 4 to 5 Esmolol HCl/Sodium Chloride 2. 250 mls @ 17.554 mls/hr 11/14/21 05:23 11/14/21 10:23 5 gm/ IV Solution IV 11/14/21 19:37 200 mcg/kg/min .[id number] ONE 70.216 mls/hr Administration Protocol 50 MCG/KG/MIN Naloxone HCl 0.2 mg 11/14/21 08:45 Naloxone 0.4 Mg/Ml 1 Ml Vial IV Q2M PRN Opioid Reversal Intake and Output 11/13/21 11/14/21 11/14/21 22:59 06:59 14:59 Intake Total 15.798 234.202 Balance 15.798 234.202 Intake: Intake, IV Titration 15.798 234.202 Amount Esmolol in Sodium 15.798 234.202 Chloride Pmx 2.5 gm In Saline 1 250ml.bag @ 50 MCG/KG/MIN 17.554 mls/hr IV .[id number] ONE Rx#: [id number] Other: Weight 58.513 kg 11/14/21 03:51 11/14/21 03:51
[2021-11-14] MEDS: VALSARTAN 80 MG TAB PO SCH ×2 (11:19→14:19)
[2021-11-14 11:56] VITALS: BP 175/103; PULSE 62
--- NOTE | 2021-11-14 13:02 | P.HPIM ---
History of Present Illness Presents with upper back and chest pain. This is a pleasant 56 years old female with past medical history of Hypertension, Osteoarthritis ,Macular Degeneration, Descending thoracic aortic aneurysm. Patient states her PCP is Laura Ridley Presents for upper back and moderate chest pain for a few days duration. Also patient has memory problems as she could not remember all the details. 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 By the time I saw her in the emergency room she told me she feels fine and back to normal self. She states that her chest pain and back pain have resolved now. She denies any other symptoms. No headache or numbness or weakness. No dyspnea or coughing. No diarrhea or vomiting. No urinary complaints. No fever she states she takes multiple because of her A. fib with her stock and station agent Dr. Hearn. On admission patient is hypertensive with blood pressure 231/122, currently blo od pressure 198/117. Rest of vital signs stable and patient is afebrile. Labs show an unremarkable CBC, INR, d-dimer is elevated at 3.1, sodium 135, creatinine 1.08, GFR is 47. Glucose 141, liver enzymes are unremarkable. Troponin is negative less than 0.012. Coronal first detected. Thoracic aorta CT: There is 6 cm aneurysm of the top of the aortic arch which is increased 1 cm in diameter compared to old computed tomography scan. There is dissection of the descending thoracic aorta which is a change compared to old exam. There is mid descending thoracic aorta measures 2.3 cm which is thro mbosed and increased 7 mm in diameter compared to old exam. There is obstructing large calculus mid left ureter with left-sided hydronephrosis and decreased. This is probably chronic. There is left renal with cortical thinning. Nonobstructive right-sided renal calculus. Dilated gallbladder with mixed attenuation. Gallbladder masses possible. Follow-up recommendation On admission patient was started on esmolol drip Urgent vascular surgery consult with Dr. Manzo is placed Postoperative her in the emergency room and he recommended transfer to [facility] for definitive surgical intervention however patient declined surgery for now therefore plan for her is to be admitted to the ICU with cardiology and critical care consult Review of Systems CONSTITUTIONAL: No fever, no malaise, no fatigue. HEENT: No recent visual problems or hearing problems. Denied any sore throat. CARDIOVASCULAR: No orthopnea, PND, no palpitations, no syncope. PULMONARY: No shortness of breath, no cough, no hemoptysis. GASTROINTESTINAL: No diarrhea, no nausea, no vomiting, no abdominal pain. Normoactive bowel sounds. NEUROLOGICAL: No headaches, no weakness, no numbness. HEMATOLOGICAL: Denies any bleeding or petechiae. GENITOURINARY: Denies any burning micturition, frequency, or urgency. MUSCULOSKELETAL/RHEUMATOLOGICAL: Denies any joint pain, swelling, or any muscle pain. ENDOCRINE: Denies any polyuria or polydipsia. Past Medical History Past Medical History: Eye Disorder, Hypertension, Osteoarthritis (OA) Additional Past Medical History / Comment(s): Macular Degeneration, past bladder infection, "vaginal itching uses a cream for it". fx rt radius, Descending thoracic aortic aneurysm History of Any Multi-Drug Resistant Organisms: None Reported Past Surgical History: Hysterectomy, Joint Replacement, Tonsillectomy Additional Past Surgical History / Comment(s): R hip replacement, R knee replacement, monika cataract, vein stripping Past Anesthesia/Blood Transfusion Reactions: No Reported Reaction Past Psychological History: No Psychological Hx Reported Smoking Status: Never smoker Past Alcohol Use History: Occasional Past Drug Use History: None Reported - Past Family History Father Family Medical History: Diabetes Mellitus Mother Family Medical History: Cancer, Hypertension, Myocardial Infarction ([place]) Additional Family Medical History / Comment(s): Breast, history of aortic aneurysm. Medications and Allergies Home Medications Medication Instructions Recorded Confirmed Type Losartan [Cozaar] 25 mg PO DAILY 11/14/21 11/14/21 History Metoprolol Succinate (ER) [Toprol 50 mg PO DAILY PRN 11/14/21 11/14/21 History Xl] Potassium (Unknown Dose) 1 tab PO DAILY 11/14/21 11/14/21 History QUEtiapine [SEROquel] 25 mg PO DAILY 11/14/21 11/14/21 History Rivaroxaban [Xarelto] 20 mg PO DAILY 11/14/21 11/14/21 History Sertraline [Zoloft] 25 mg PO DAILY 11/14/21 11/14/21 History Allergies Allergy/AdvReac Type Severity Reaction Status Date / Time adhesive Allergy Rash/Hives Verified 11/14/21 03:22 Physical Exam Vitals: Vital Signs Temp Pulse Resp BP Pulse Ox 11/14/21 07:57 71 16 198/117 95 11/14/21 07:44 76 18 204/117 95 11/14/21 07:04 66 16 203/116 99 11/14/21 06:17 63 17 213/103 100 11/14/21 05:14 71 16 231/122 100 11/14/21 03:17 98.3 F 66 20 157/78 99 Intake and Output 11/13/21 11/14/21 11/14/21 22:59 06:59 14:59 Intake Total 15.798 27.209 Balance 15.798 27.209 Intake: Intake, IV Titration 15.798 27.209 Amount Esmolol in Sodium 15.798 27.209 Chloride Pmx 2.5 gm In Saline 1 250ml.bag @ 50 MCG/KG/MIN 17.554 mls/hr IV .[id number] ONE Rx#: [id number] Other: Weight 58.513 kg -GENERAL: The patient is alert and oriented x3, not in any acute distress. Well developed, well nourished. Patient is legally blind HEENT: Pupils are round and equally reacting to light. EOMI. No scleral icterus. No conjunctival pallor. Normocephalic, atraumatic. No pharyngeal erythema. No thyromegaly. CARDIOVASCULAR: S1 and S2 present. No murmurs, rubs, or gallops. PULMONARY: Chest is clear to auscultation, no wheezing or crackles. ABDOMEN: Soft, nontender, nondistended, normoactive bowel sounds. No palpable organomegaly. MUSCULOSKELETAL: No joint swelling or deformity. EXTREMITIES: No cyanosis, clubbing, or pedal edema. NEUROLOGICAL: Gross neurological examination did not reveal any focal deficits. SKIN: No rashes. No petechiae Results CBC & Chem 7: 11/14/21 03:51 11/14/21 03:51 Labs: Abnormal Lab Results - Last 24 Hours (Table) 11/14/21 11/14/21 Range/Units 03:51 03:51 D-Dimer 3.16 H (<0.60) mg/L FEU Sodium 135 L (137-145) mmol/L Carbon Dioxide 21 L (22-30) mmol/L BUN 20 H (7-17) mg/dL Creatinine 1.08 H (0.52-1.04) mg/dL Glucose 141 H (74-99) mg/dL Alkaline Phosphatase 149 H (38-126) U/L Assessment and Plan Assessment: New Dissecting aortic aneurysm, also There is mid descending thoracic aorta measures 2.3 cm which is thrombosed and increased 7 mm in diameter compared to old exam. Increased aortic arch aneurysm by 1 cm up to 6 cm currently Hypertension with urgency on admission Obstructing large left ureteral calculus with left hydronephrosis, mostly chronic Dilated gallbladder, cannot exclude: Bladder mass Chronic kidney disease stage III History of osteoarthritis History of macular degeneration Plan: this is a pleasant 86 years old female who presents with hypertensive urgency and dissecting aortic aneurysm. admitted to the ICU with close blood pressure measurement, patient will need arterial line continue with vascular surgery team recommendation Consult critical care team and stock and station agent Close monitoring of blood pressure Labs and medication were reviewed.. Continue same treatment. Continue with symptomatic treatment. Resume home medication. Monitor lytes and vitals. DVT and GI prophylaxis. Further recommendations depends on the clinical course of the patient DVT prophylaxis: No anticoagulation for risk of bleeding is high, continue with mechanical GI Prophylaxis: Pepcid PT/OT: Pending Prognosis is guarded
[2021-11-14] MEDS ORDERED: ONDANSETRON 4 MG/2 ML VIAL IVP PRN (13:18)
--- NOTE | 2021-11-14 13:44 | P.CNPUL ---
History of Present Illness Consult date: 11/14/21 Chief complaint: Aortic dissection History of present illness: 86-year-old female patient, presented to the hospital because of pain in her upper back between her shoulder blades. CTA of the chest was done and the patient was found to have a large thoracic aneurysm and dissection extending to the mid thoracic aorta without extravasation. The patient was seen by vascular surgery. Surgery was offered and the patient was declined and the patient is being treated medically at this point in time. She'll be transferred to the intensive care unit. She had an acute hypertensive emergency and the patient was given esmolol drip for blood pressure control. Most recent blood pressure is still elevated with a systolic blood pressure of 175 and a diastolic blood pressure 103. Patient is currently on room air oxygen. No focal neurological d eficits. She is awake and alert. She is a poor historian. The hemoglobin is at 15.8. D-dimer is at 3.1. Creatinine is 1.08. Sodium is at 135. Alert and active testing is covid19 testing was negative. The patient is currently on Diovan 80 mg twice a day, labetalol 200 mg twice a day and esmolol drip at 50 mcg/kg per minute. Review of Systems Constitutional: Reports as per HPI Eyes: bilateral blurred vision, bilateral decreased vision, denies as per HPI, denies bulging eye, denies diplopia, denies discharge, denies dry eye, denies irritation, denies itching, denies pain, denies photophobia, denies loss of peripheral vision, denies loss of vision, denies tunnel vision/blind spots Ears: deny: decreased hearing, ear discharge, earache, tinnitus Ears, nose, mouth and throat: Reports as per HPI Breasts: absent: as per HPI, change in shape, gynecomastia, masses, nipple discharge, pain, skin changes, swelling Cardiovascular: Reports as per HPI Respiratory: Reports as per HPI Gastrointestinal: Reports as per HPI, Reports nausea, Reports vomiting Genitourinary: Reports as per HPI Menstruation: Reports as per HPI Musculoskeletal: Reports as per HPI Musculoskeletal: absent: ankle pain, ankle stiffness, ankle swelling, as per HPI, elbow pain, elbow stiffness, elbow swelling, foot pain, foot stiffness, foot swelling, hand pain, hand stiffness, hand swelling, hip pain, hip stiffness, hip swelling, knee pain, knee stiffness, knee swelling, shoulder pain, shoulder stiffness, shoulder swelling, wrist pain, wrist stiffness, wrist swelling Integumentary: Reports as per HPI Neurological: Reports as per HPI Psychiatric: Reports as per HPI Endocrine: Reports as per HPI Hematologic/Lymphatic: Reports as per HPI Allergic/Immunologic: Reports as per HPI Past Medical History Past Medical History: Eye Disorder, Hypertension, Osteoarthritis (OA) Additional Past Medical History / Comment(s): Macular Degeneration, past bladder infection, "vaginal itching uses a cream for it". fx rt radius, Descending thoracic aortic aneurysm History of Any Multi-Drug Resistant Organisms: None Reported Past Surgical History: Hysterectomy, Joint Replacement, Tonsillectomy Additional Past Surgical History / Comment(s): R hip replacement, R knee replacement, monika cataract, vein stripping Past Anesthesia/Blood Transfusion Reactions: No Reported Reaction Past Psychological History: No Psychological Hx Reported Smoking Status: Never smoker Past Alcohol Use History: Occasional Past Drug Use History: None Reported - Past Family History Father Family Medical History: Diabetes Mellitus Mother Family Medical History: Cancer, Hypertension, Myocardial Infarction ([place]) Additional Family Medical History / Comment(s): Breast, history of aortic aneurysm. Medications and Allergies Home Medications Medication Instructions Recorded Confirmed Type Losartan [Cozaar] 25 mg PO DAILY 11/14/21 11/14/21 History Metoprolol Succinate (ER) [Toprol 50 mg PO DAILY PRN 11/14/21 11/14/21 History Xl] Potassium (Unknown Dose) 1 tab PO DAILY 11/14/21 11/14/21 History QUEtiapine [SEROquel] 25 mg PO DAILY 11/14/21 11/14/21 History Rivaroxaban [Xarelto] 20 mg PO DAILY 11/14/21 11/14/21 History Sertraline [Zoloft] 25 mg PO DAILY 11/14/21 11/14/21 History Allergies Allergy/AdvReac Type Severity Reaction Status Date / Time adhesive Allergy Rash/Hives Verified 11/14/21 03:22 Physical Exam Vitals: Vital Signs Temp Pulse Resp BP Pulse Ox 11/14/21 11:00 62 18 175/103 99 11/14/21 10:00 66 18 165/96 97 11/14/21 09:00 67 195/117 97 11/14/21 08:56 65 18 188/107 95 11/14/21 07:57 71 16 198/117 95 11/14/21 07:44 76 18 204/117 95 11/14/21 07:04 66 16 203/116 99 11/14/21 06:17 63 17 213/103 100 11/14/21 05:14 71 16 231/122 100 11/14/21 03:17 98.3 F 66 20 157/78 99 Intake and Output 11/13/21 11/14/21 11/14/21 22:59 06:59 14:59 Intake Total 15.798 234.202 Balance 15.798 234.202 Intake: Intake, IV Titration 15.798 234.202 Amount Esmolol in Sodium 15.798 234.202 Chloride Pmx 2.5 gm In Saline 1 250ml.bag @ 50 MCG/KG/MIN 17.554 mls/hr IV .[id number] ONE Rx#: [id number] Other: Weight 58.513 kg -GENERAL: The patient is alert and oriented x3, not in any acute distress. Well developed, well nourished. Patient is legally blind HEENT: Pupils are round and equally reacting to light. EOMI. No scleral icterus. No conjunctival pallor. Normocephalic, atraumatic. No pharyngeal erythema. No thyromegaly. CARDIOVASCULAR: S1 and S2 present. No murmurs, rubs, or gallops. PULMONARY: Chest is clear to auscultation, no wheezing or crackles. ABDOMEN: Soft, nontender, nondistended, normoactive bowel sounds. No palpable organomegaly. MUSCULOSKELETAL: No joint swelling or deformity. EXTREMITIES: No cyanosis, clubbing, or pedal edema. NEUROLOGICAL: Gross neurological examination did not reveal any focal deficits. Examination of the skin revealed no evidence of significant rashes, suspicious appearing nevi or other concerning lesions. Results - Laboratory Findings CBC and BMP: 11/14/21 03:51 11/14/21 03:51 PT/INR, D-dimer PT 11.3 sec (9.0-12.0) 11/14/21 03:51 INR 1.1 (<1.2) 11/14/21 03:51 D-Dimer 3.16 mg/L FEU (<0.60) H 11/14/21 03:51 Abnormal lab findings: Abnormal Labs 01/11/14/21 11/14/21 03:51 03:51 09:25 D-Dimer 3.16 H Sodium 135 L Carbon Dioxide 21 L BUN 20 H Creatinine 1.08 H Glucose 141 H POC Glucose (mg/dL) 129 H Alkaline Phosphatase 149 H - Diagnostic Findings Chest x-ray: image reviewed CT scan - chest: image reviewed Assessment and Plan Plan: 1 type II aortic dissection. 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 in size with interval increase in size 3 acute hypertensive emergency 4 history of hypertension 5 macular degeneration the patient is legally blind 6 degenerative arthritis 7 history of large left ureteral calculus with previous history of hydronephrosis, renal function is stable for now Plan Admit this patient to the intensive care unit Arterial line will be considered once the patient is in the ICU for blood pressure monitoring Continue esmolol drip Continue combination of labetalol and Diovan May switch to clevidipine drip and the patient's blood pressure continues to be quite elevated Monitor hemoglobin Vascular surgery on the case and the patient declined surgery. She does have a poor baseline performance and functional status. She doesn't want to do any intervention regarding the aortic arch aneurysm and a dissecting aneurysm at this point in time. Hold anticoagulants for now Admit the patient to the ICU and will continue to follow.
[2021-11-14] MEDS ORDERED: LABETALOL 200 MG TAB PO SCH (21:00)
== END 2021-11-14 16:00 | disposition expired | DRG 300 ==
LOC: EC 03:10 → 2SICU 08:45
PROVIDERS: ADMIT Internal Medicine; ATTEND Internal Medicine
DX: I71.01 Dissection of thoracic aorta (principal); I16.1 Hypertensive emergency; N13.2 Hydronephrosis with renal and ureteral calculous obstruction; I74.11 Embolism and thrombosis of thoracic aorta; I71.2 Thoracic aortic aneurysm, without rupture; I16.0 Hypertensive urgency; N18.30 Chronic kidney disease, stage 3 unspecified; Z66 Do not resuscitate; Z20.822 Contact with and (suspected) exposure to COVID-19; M19.90 Unspecified osteoarthritis, unspecified site; I12.9 Hypertensive chronic kidney disease with stage 1 through stage 4 chronic kidney disease, or unspecified chronic kidney disease; H54.8 Legal blindness, as defined in USA; I48.91 Unspecified atrial fibrillation; Z79.01 Long term (current) use of anticoagulants; Z79.899 Other long term (current) drug therapy; Z82.49 Family history of ischemic heart disease and other diseases of the circulatory system; Z83.3 Family history of diabetes mellitus; Z90.710 Acquired absence of both cervix and uterus; Z96.641 Presence of right artificial hip joint; Z96.651 Presence of right artificial knee joint; Z98.42 Cataract extraction status, left eye; Z98.41 Cataract extraction status, right eye; Z91.048 Other nonmedicinal substance allergy status
CPT/HCPCS: 36415; 71275; 74174; 80053; 83735; 84484; 85025; 85379; 85610; 85730; 87635; 93005; 96365; 96366; 96375; 99291